=== PATIENT | female | born 1980 | race Caucasian/White ===

== ENCOUNTER 2017-10-24 16:59 | Inpatient (IN) | payer OTHER ==
[2017-10-24] VITALS (11 sets, daily range): BP systolic 93–107; BP diastolic 53–66
[~2017-10-24] VITALS: Ht 162.6 cm; Wt 52.2 kg
[~2017-10-24 16:59] MED LIST: HYDR-3812 PO; SERT25TA PO
[2017-10-24 17:35] LABS: BASOPHILS % (AUTO) 1 % (0-10); EOSINOPHILS % (AUTO) 0 % (0-10); LYMPHOCYTES # (AUTO) 1.2 X 10^3 (1.0-4.0); LYMPHOCYTES % (AUTO) 29 % (12-44); MEAN CORPUSCULAR HGB CONC 34 G/DL (32-36); MEAN CORPUSCULAR VOLUME 102 FL (80-99); MONOCYTES # (AUTO) 0.2 X 10^3 (0.0-1.0); MONOCYTES % (AUTO) 4 % (0-12); NEUTROPHILS # (AUTO) 2.8 X 10^3 (1.8-7.8); NEUTROPHILS % (AUTO) 67 % (42-75); RED CELL DISTRIBUTION WIDTH 18.6 % (10.0-14.5); WHITE BLOOD COUNT 4.3 10^3/uL (4.3-11.0)
[2017-10-24 17:40] LABS: MEAN CORPUSCULAR HEMOGLOBIN 35 PG (25-34); PLATELET COUNT 3 10^3/uL (130-400); RED BLOOD COUNT 2.14 10^6/uL (4.35-5.85)
[2017-10-24 17:52] LABS: INR 1.3 (0.8-1.4); PROTHROMBIN TIME PATIENT 16.2 SEC (12.2-14.7)
[2017-10-24 18:00] LABS: ALANINE AMINOTRANSFERASE 233 U/L (0-55); ALBUMIN 2.8 GM/DL (3.2-4.5); ANION GAP 20 MMOL/L (5-14); ASPARTATE AMINO TRANSFERASE 527 U/L (5-34); BILIRUBIN,TOTAL 1.9 MG/DL (0.1-1.0); BLOOD UREA NITROGEN 11 MG/DL (7-18); BUN/CREATININE RATIO 18; CARBON DIOXIDE 22 MMOL/L (21-32); CHLORIDE 87 MMOL/L (98-107); CREATININE SERUM 0.62 MG/DL (0.60-1.30); GFR ESTIMATED > 60; GLUCOSE 239 MG/DL (70-105); POTASSIUM 2.6 MMOL/L (3.6-5.0); SODIUM 129 MMOL/L (135-145); TOTAL PROTEIN 5.7 GM/DL (6.4-8.2)
[2017-10-24 18:32] LABS: BASOPHILS % (AUTO) 1 % (0-10); EOSINOPHILS % (AUTO) 0 % (0-10); LYMPHOCYTES # (AUTO) 1.1 X 10^3 (1.0-4.0); LYMPHOCYTES % (AUTO) 26 % (12-44); MEAN CORPUSCULAR HEMOGLOBIN 34 PG (25-34); MEAN CORPUSCULAR HGB CONC 34 G/DL (32-36); MEAN CORPUSCULAR VOLUME 102 FL (80-99); MONOCYTES # (AUTO) 0.4 X 10^3 (0.0-1.0); MONOCYTES % (AUTO) 9 % (0-12); NEUTROPHILS # (AUTO) 2.8 X 10^3 (1.8-7.8); NEUTROPHILS % (AUTO) 65 % (42-75); RED BLOOD COUNT 2.15 10^6/uL (4.35-5.85); RED CELL DISTRIBUTION WIDTH 18.7 % (10.0-14.5); WHITE BLOOD COUNT 4.2 10^3/uL (4.3-11.0)
[2017-10-24 18:33] LABS: PATH WILL NEED TO REVIEW SMEAR PATH TO REVIEW; PLATELET COUNT 5 10^3/uL (130-400)
--- NOTE | 2017-10-24 18:42 | ED General ---
General Chief Complaint: General Problems/Pain Stated Complaint: LOW PLATELET COUNT Nursing Triage Note: PT WAS SENT TO ED BY [facility] WITH IRREGULAR LABS. SHE HAD LABS DRAWN BY [facility] EARLIER TODAY AND WAS SENT TO ED FOR POSSIBLE TRANSFUSION. Nursing Sepsis Screen: No Definite Risk Source of Information: Patient Exam Limitations: No Limitations History of Present Illness Time Seen by Provider: 17:01 Initial Comments This 37-year-old young lady presents to the emergency room with anemia and thrombocytopenia related to treatment for metastatic breast cancer. She has been having some oozing epistaxis for the past 2 days. She had labs performed at [facility] earlier today and was found to have significant thrombocytopenia. Her oncology team at [facility] directed her to the emergency room. She is feeling a little lightheaded and shaky but is otherwise stable. She is currently undergoing chemotherapy with gemcitabine and vinorelbine. Patient has known liver metastases with abnormal transaminases. Contact numbers for [facility] (Dr. Rogelio Cintron emergency medicine nurse practitioner are: Allergies and Home Medications Allergies Coded Allergies: No Known Drug Allergies (Verified , 03/24/08) Home Medications Hydrocodone/Acetaminophen 1 Each Tablet, 1-2 TAB PO 4-6HR PRN for PAIN, #30 MAY TAKE ONE OR TWO TABLETS BY MOUTH EVERY 4 TO 6 HOURS NEEDED FOR PAIN. LAST PAIN MEDICATION, ONE TABLET, GIVEN AT 4:44 PM 07/30/16. Prescribed by: JAMAL CEE on 07/30/16 [id number] Constitutional: no symptoms reported EENTM: see HPI Respiratory: no symptoms reported Cardiovascular: see HPI Gastrointestinal: see HPI Genitourinary: no symptoms reported : No Musculoskeletal: no symptoms reported Skin: no symptoms reported Psychiatric/Neurological: No Symptoms Reported Hematologic/Lymphatic: See HPI Immunological/Allergic: see HPI Past Jhoxoac-Aqisuc-Otmbjp Hx Patient Social History Alcohol Use: Denies Use Recreational Drug Use: No Smoking Status: Never a Smoker 2nd Hand Smoke Exposure: No Recent Foreign Travel: No Contact w/Someone Who Travel: No Recent Infectious Disease Expo: No Recent Hopitalizations: Yes Physical Abuse: No Sexual Abuse: No Immunizations Up To Date Date of Influenza Vaccine: Aug 11, 2012 Surgeries History of Surgeries: Yes (D&C, PORT) Surgeries: Lumpectomy Respiratory History of Respiratory Disorde: No Cardiovascular History of Cardiac Disorders: No Neurological History of Neurological Disord: No Reproductive System : No Hx Reproductive Disorders: No Sexually Transmitted Disease: No HIV/AIDS: No Genitourinary History of Genitourinary Disor: No Gastrointestinal History of Gastrointestinal Di: No Musculoskeletal History of Musculoskeletal Dis: No Endocrine History of Endocrine Disorders: No HEENT History of HEENT Disorders: No Loss of Vision: Bilateral Hearing Impairment: Denies Cancer History of Cancer: Yes (METS TO LIVER) Cancer: Breast Did You Recieve Any Treatments: Yes Type of Tx Receive: Chemotherapy Psychosocial History of Psychiatric Problem: No Suicide Risk Score: 0 Integumentary History of Skin or Integumenta: No Blood Transfusions History of Blood Disorders: No Physical Exam Vital Signs Vital Sign - Last 12Hours 10/24/17 17:15 Temp 98.4 Pulse 126 Resp 20 B/P (MAP) 94/73 (80) Pulse Ox 97 O2 Delivery Room Air Capillary Refill : Less Than 3 Seconds General Appearance: No Apparent Distress, Thin HEENT: PERRL/EOMI, Normal ENT Inspection, Pharynx Normal Neck: Normal Inspection Respiratory: Lungs Clear, Normal Breath Sounds, No Accessory Muscle Use, No Respiratory Distress Cardiovascular: No Edema, Systolic Murmur, Other (abdominal bruit) Gastrointestinal: Normal Bowel Sounds, Non Tender, Soft Extremity: Normal Inspection, No Pedal Edema Neurologic/Psychiatric: Alert, Oriented x3, No Motor/Sensory Deficits, Normal Mood/Affect, registered nurse supervisor II-XII Norm as Tested Skin: Normal Color, Warm/Dry Progress/Results/Core Measures Suspected Sepsis Recent Fever Within 48 Hours: No Infection Criteria Present: None New/Unexplained Altered Menta: No Sepsis Screen: No Definite Risk Sepsis Diagnosis: SIRS Temperature:98.4 Pulse: 126 Respiratory Rate: 20 Laboratory Tests 10/24/17 17:27: White Blood Count 4.2L Blood Pressure 94 /73 Mean: 80 Laboratory Tests 10/24/17 17:27: Creatinine 0.62, INR Comment 1.3, Platelet Count 5*L, Total Bilirubin 1.9H Results/Orders Lab Results Laboratory Tests Test 10/24/17 17:27 10/24/17 18:24 10/24/17 19:08 Range/Units White Blood Count 4.2 L 4.3-11.0 10^3/uL Red Blood Count 2.15 L 4.35-5.85 10^6/uL Hemoglobin 7.4 L 11.5-16.0 G/DL Hematocrit 22 L 35-52 % Mean Corpuscular Volume 102 H 80-99 FL Mean Corpuscular Hemoglobin 34 25-34 PG Mean Corpuscular Hemoglobin Concent 34 32-36 G/DL Red Cell Distribution Width 18.7 H 10.0-14.5 % Platelet Count 5 *L 130-400 10^3/uL Mean Platelet Volume 7.4-10.4 FL Neutrophils (%) (Auto) 65 42-75 % Lymphocytes (%) (Auto) 26 12-44 % Monocytes (%) (Auto) 9 0-12 % Eosinophils (%) (Auto) 0 0-10 % Basophils (%) (Auto) 1 0-10 % Neutrophils # (Auto) 2.8 1.8-7.8 X 10^3 Lymphocytes # (Auto) 1.1 1.0-4.0 X 10^3 Monocytes # (Auto) 0.4 0.0-1.0 X 10^3 Eosinophils # (Auto) 0.0 0.0-0.3 10^3/uL Basophils # (Auto) 0.0 0.0-0.1 10^3/uL Absolute Reticulocyte Count 4 L 24-90 10e9/L Percent Reticulocyte Count 0.20 L 0.50-2.40 % Prothrombin Time 16.2 H 12.2-14.7 SEC INR Comment 1.3 0.8-1.4 Activated Partial Thromboplast Time 43 H 24-35 SEC D-Dimer 2.45 H 0.00-0.49 UG/ML Sodium Level 129 L 135-145 MMOL/L Potassium Level 2.6 L 3.6-5.0 MMOL/L Chloride Level 87 L 98-107 MMOL/L Carbon Dioxide Level 22 21-32 MMOL/L Anion Gap 20 H 5-14 MMOL/L Blood Urea Nitrogen 11 7-18 MG/DL Creatinine 0.62 0.60-1.30 MG/DL Estimat Glomerular Filtration Rate > 60 BUN/Creatinine Ratio 18 Glucose Level 239 H 70-105 MG/DL Calcium Level 8.0 L 8.5-10.1 MG/DL Magnesium Level 1.7 L 1.8-2.4 MG/DL Total Bilirubin 1.9 H 0.1-1.0 MG/DL Aspartate Amino Transf (AST/SGOT) 527 H 5-34 U/L Alanine Aminotransferase (ALT/SGPT) 233 H 0-55 U/L Alkaline Phosphatase 295 H 40-136 U/L Lactate Dehydrogenase 732 H 125-220 U/L Total Protein 5.7 L 6.4-8.2 GM/DL Albumin 2.8 L 3.2-4.5 GM/DL Fibrinogen 740 H 221-496 MG/DL Urine Color YELLOW Urine Clarity CLEAR Urine pH 6 5-9 Urine Specific [place] 1.010 L 1.016-1.022 Urine Protein NEGATIVE NEGATIVE Urine Glucose (UA) NEGATIVE NEGATIVE Urine Ketones NEGATIVE NEGATIVE Urine Nitrite NEGATIVE NEGATIVE Urine Bilirubin NEGATIVE NEGATIVE Urine Urobilinogen NORMAL NORMAL MG/DL Urine Leukocyte Esterase 1+ H NEGATIVE Urine RBC (Auto) 1+ H NEGATIVE Urine RBC NONE /HPF Urine WBC 0-2 /HPF Urine Squamous Epithelial Cells 0-2 /HPF Urine Crystals NONE /LPF Urine Bacteria NONE /HPF Urine Casts NONE /LPF Urine Mucus NEGATIVE /LPF Urine Culture Indicated NO My Orders Orders - KALANI RO MD Protime With Inr (10/24/17 17:19) Partial Thromboplastin Time (10/24/17 17:19) Implanted Port: Access (10/24/17 17:32) Platelet Pheresis Lr (10/24/17 18:07) Red Cells Leukocytes Reduced (10/24/17 18:08) Type And Screen (10/24/17 17:56) LDH (10/24/17 18:23) Fibrin Degradation Products (10/24/17 18:23) Smear For Path Review (10/24/17 18:23) Haptoglobin Screen (10/24/17 18:23) Fibrinogen (10/24/17 18:31) Ns Iv 500 Ml (Sodium Chloride 0.9%) (10/24/17 18:45) Potassium Chloride (Tablet) (Klor Con Ta (10/24/17 19:00) Magnesium (10/24/17 19:08) Ua Culture If Indicated (10/24/17 19:08) Chest 1 View, Ap/Pa Only (10/24/17 19:08) Medications Given in ED Current Medications Medications Dose Ordered Sig/Angus Route Start Time Stop Time Status Last Admin Dose Admin Potassium Chloride 20 meq ONCE ONCE PO 10/24/17 19:00 10/24/17 19:01 DC 10/24/17 19:05 20 MEQ Sodium Chloride 500 ml @ 100 mls/hr Q5H ONCE IV 10/24/17 18:45 10/24/17 23:44 10/24/17 18:55 100 MLS/HR Vital Signs/I&O Vital Sign - Last 12Hours 10/24/17 17:15 Temp 98.4 Pulse 126 Resp 20 B/P (MAP) 94/73 (80) Pulse Ox 97 O2 Delivery Room Air Capillary Refill : Less Than 3 Seconds Blood Pressure Mean: 80 Progress Note #1: Time: 18:20 Progress Note Platelet count was 30,000. Call was placed to Dr. Rogelio Cintron at the [facility], oncologist emergency medicine nurse practitioner. He recommended screening for DIC by adding a peripheral smear, LDH, haptoglobin, fibrinogen, and d-dimer. He recommends transfusion of one unit packed red blood cells and one platelet pack. He suggested admitting to observe overnight and repeating labs. Because patient is tachycardic, he also suggested some IV fluids. Labs will be ordered as above. 500 mL normal saline will be ordered for hydration. Progress Note #2: Time: 19:09 Progress Note Chemistry labs have returned. Patient is notably hyponatremic and hypokalemic. She presently has normal saline running. This will be switched over to normal saline with 40 mEq of potassium upon admission. She will be given potassium 20 mEq by mouth now. Dr. El was updated and also recommended checking magnesium and also screening for infection with chest x-ray and UA. Progress Note #3: Time: 19:48 Progress Note Chest x-ray was viewed by me. No acute abnormalities were appreciated. UA was negative for infection. Platelets are now infusing. Dr. Williamson is in the room to assess patient. Diagnostic Imaging Diagonstic Imaging: Xray Plain Films/CT/US/NM/MRI: chest Comments Chest x-ray viewed by me and report reviewed. See report below: NAME: RANDI GASTON MED REC#: [id number] PT STATUS: ADM IN : 1980 PHYSICIAN: KALANI RO MD ADMIT DATE: 10/24/17 Signed Date of Exam: 10/24/17 CHEST 1 VIEW, AP/PA ONLY PATIENT HISTORY: Stage IV breast cancer, low platelet count. TECHNIQUE: Single frontal view of the chest. COMPARISON: CT of the chest from 07/26/2016. FINDINGS: The lung volumes are normal. No focal consolidation is seen. No large pleural effusion or pneumothorax is seen. The cardiomediastinal silhouette is normal in size and contour. No acute osseous abnormality is seen. The tip of the right Port-A-Cath projects over the low SVC. IMPRESSION: No acute pulmonary abnormality seen. Dictated by: Dictated on workstation # [id number] Dict: 10/24/171927 Trans: 10/24/171931 Interpreted by: CLEMENTE SMITH MD Electronically signed by: CLEMENTE SMITH MD 10/24/171931 Departure Communication (Admissions) Time/Spoke to Admitting Phy: 18:[address] Williamson Time/Spoke to Consulting Phy: 18:30 Communication/Consulting Dr. El was consulted and will see the patient in the morning. He recommended repeating the DIC panel in the morning along with the other labs. Impression Impression: Primary Impression: Thrombocytopenia Additional Impressions: Anemia Qualified Codes: D64.9 - Anemia, unspecified Epistaxis Metastatic breast cancer Hypokalemia Hyponatremia Elevated transaminase level Hyperglycemia Disposition: 09 ADMITTED INPATIENT Condition: Improved Admissions Decision to Admit Reason: Admit from ER (General) Decision to Admit/Date: Oct 24, 2017 Time/Decision to Admit Time: 18:15 Departure-Patient Inst. Referrals: ANNETTE WILLIAMSON MD (PCP/Family) Primary Care Physician KALANI RO MD Oct 24, 2017 18:41
[2017-10-24] MEDS ORDERED: NS IV 500 ML 500 ML IV ONE (18:45)
[2017-10-24] MEDS ORDERED: KCL 10 MEQ TAB (MICRO K) PO ONE (19:00)
--- NOTE | 2017-10-24 19:31 | Diagnostic Imaging Report ---
PATIENT HISTORY: Stage IV breast cancer, low platelet count. TECHNIQUE: Single frontal view of the chest. COMPARISON: CT of the chest from 07/26/2016. FINDINGS: The lung volumes are normal. No focal consolidation is seen. No large pleural effusion or pneumothorax is seen. The cardiomediastinal silhouette is normal in size and contour. No acute osseous abnormality is seen. The tip of the right Port-A-Cath projects over the low SVC. IMPRESSION: No acute pulmonary abnormality seen. Dictated by: Dictated on workstation # [id number]
--- OUTSIDE RECORDS SUMMARY | 2017-10-24 19:33 | XMS REPORT | Clinical Summary ---
Author Author [facility] Organization [facility] Address Unknown Phone Unavailable Care Team Providers Care Barometers Calibrator Name Role Phone PCP Unavailable Source Comments Some departments are not documenting in the electronic medical record. If you do not see the information that you expected, contact Release of Information in the Health Information Management department at [phone] for further assistance in locating additional records.[facility] Allergies Active Allergy Reactions Severity Noted Date Comments Progesterone ITCHING Low 07/31/2016 Current Medications Prescription Sig. Disp. 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 Left infiltrating mammary carcinoma, ductal type (ER/MS 0%, HER2 0+, Ki-67 70%) at 10:00, dx 07/2016 2. [place] negative HISTORY: Ms. Mckeon is a female who presented to [facility] on 07/31/2016 at age 36 for evaluation of newly diagnosed breast cancer. She reports finding left breast lump on 07/13/2016. Ms. Mckeon denies breast pain, skin changes, or nipple discharge. She has no history of breast issues, biopsies, or surgeries, and had never had breast imaging prior to 07/20/2016. Ultrasound guided left breast biopsy on 07/20/2016 ( in [place]) revealed infiltrating mammary carcinoma, ductal type. Left axillary lymph node biopsy revealed fragments of benign lymphoid tissue; no malignancy identified. She completed jed-adjuvant clinical trial with Taxotere/Carbo every 3 weeks x6 cycles on 11/23/16. She underwent left RSL lumpectomy/SLNB on 12/13/16. Final pathology revealed 1.8 cm residual grade 3 IDC (60% cellularity); margins clear; 0/5 nodes. Ms. Mckeon completed adjuvant ddAC on 03/29/17. She completed radiation therapy with Dr. Rain on 06/05/17. BREAST IMAGING: Mammogram: -- Bilateral diagnostic mammogram 07/20/16 ( in [place]) revealed heterogeneously dense breast tissue and a lobulated mass measuring 2 cm in its visualized portion along the far posterior aspect of the superior slightly medial left breast. Ultrasound: -- Left breast ultrasound 07/20/16 ( in [place]) revealed at 10:00, 6 cm FTN, there was a lobulated suspicious hypoechoic mass with no longer than side dimensions and minimal shadowing seen measuring 2.3 x 2 x 2 cm with increased internal vascularity suspicious for breast cancer. It extended to the posterior aspect of the breast. No definitive invasions to thepectoralis muscled. There was an indeterminate 2.4 cm lymph node in the axilla with increased vascularity and mild thickening of the cortex. MRI: -- Bilateral breast MRI 08/09/16 ([facility]) revealed in the right breast, there was no evidence of abnormal enhancement, mass, or axillary/internal mammary adenopathy. There was a lobulated enhancing mass at 10:00 in the left breast which measured 2.5 x 2.1 x 2.3 cm and demonstrated suspicious washout kinetics and was consistent with the known invasive ductal carcinoma. This mass extended to within a few millimeters of the chest wall, though, there was a preserved fat plane and no evidence of chest wall invasion. No other suspicious abnormal enhancement was seen in the left breast. No abnormal left axillary or internal mammary lymph nodes were identified. Ancillary findings: Right IJ chest port catheter in place. -- Bilateral breast MRI 10/31/16 ([facility]) revealed in the right breast, there was no suspicious mass or nonmass enhancement. There was no axillary or internal mammary lymphadenopathy. There was decreased size of the known malignancy at 10:00 posterior depth measuring 1.3 cm transverse x 0.9 cm AP x 1.3 cm CC (previously measured 2.5 x 2.1 x 2.3 cm) which exhibited predominantly washout kinetics. The mass was located far posterior, but there was preserved fat plane with the pectoralis muscle. A marking clip was not visualized. There was no axillary or internal mammary lymphadenopathy. Ancillary findings: Right Port-A-Cath was noted. Other Imaging: CT chest 07/26/16 ([facility]) revealed biopsy proven 2.2 cm cancer mass in the upper medial aspect of the left breast, nonspecific minimally enlarged lymph node in the left axilla with features favoring benign reactive lymph node, tiny pulmonary nodules in the right lung base and left upper lobe were favored to be benign, isolated sclerotic lesion measuring 0.7 cm in the head of the left humerus, probably a bony island rather than early sclerotic metastasis. Bone scan and follow up studies were recommended. 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 No palpable right breast masses. No skin, nipple, or areolar change. No supraclavicular or axillary adenopathy. MEDICAL ONCOLOGY: Dr. Park PRESENT THERAPY: Jed-adjuvant clinical trial with Taxotere/Carbo every 3 weeks x 6, 08/09/16 - 11/23/16. Adjuvant ddAC x 4, 01/25/17 - 03/29/17 REFERRED BY: Nichole El MD Encounters Date Type Specialty Care Team Description 09/02/2017 Telephone Oncology Andrade Park MD Research 08/23/2017 Telephone Oncology Andrade Park MD Research 08/15/2017 Pre/Post Radiology Tono Snow RN Procedure 08/15/2017 Orders Only Oncology Andrade Park MD Malignant neoplasm of left breast in female, estrogen receptor negative, unspecified site of breast (HCC) (Primary Dx);Malignant neoplasm of breast in female, estrogen receptor negative, unspecified laterality, unspecified site of breast (HCC) 08/14/2017 Telephone Andrade Chung MD Research 08/13/2017 Clinical Otolaryngology Lad, GELY oJ Malignant neoplasm of Support upper-outer quadrant of left female breast, unspecified estrogen receptor status (HCC) 08/13/2017 Office Visit Andrade Chung MD Malignant neoplasm of breast in female, estrogen receptor negative, unspecified laterality, unspecified site of breast (HCC) (Primary Dx);Clinical trial participant 08/13/2017 Documentation Andrade Chung MD 08/13/2017 Documentation Andrade Chung MD 08/09/2017 [facility] Radiology Andrade Park MD Encounter 08/09/2017 [facility] Radiology Andrade Park MD Encounter 08/09/2017 [facility] Radiology Andrade Park MD Encounter 08/09/2017 [facility] Radiology Andrade Park MD Encounter 08/08/2017 Telephone Andrade Chung MD Appointment (Called Pt. to advise she can do her Labs at 10:00am in Imaging at since her CT is here at 10:15am. Advised to arrive by 9:30am at ...08/07/17-[facility]) 08/08/2017 Orders Only Oncology Andrade Park MD Malignant neoplasm of left breast in female, estrogen receptor negative, unspecified site of breast (Primary Dx) 08/08/2017 Orders Only Oncology Tanya Stanton APRN Malignant neoplasm of female breast, unspecified estrogen receptor status, unspecified laterality, unspecified site of breast (Primary Dx) 08/08/2017 Telephone Ron Emerson MD Appointment 08/08/2017 Telephone Oncology Ron Padilla MD Appointment 08/07/2017 Procedure Pass Radiology 08/07/2017 Procedure Pass Radiology 08/07/2017 Procedure Pass Radiology 08/07/2017 Orders Only Oncology Andrade Park MD Malignant neoplasm of left breast in female, estrogen receptor negative, unspecified site of breast (Primary Dx) 08/05/2017 Nurse Only Andrade Chung MD Malignant neoplasm of left breast in female, estrogen receptor negative, unspecified site of breast;Clinical trial participant;Malignant neoplasm of female breast, unspecified estrogen receptor status, unspecified laterality, unspecified site of breast 07/31/2017 Telephone Oncology Andrade Park MD Appointment Request 07/31/2017 Orders Only Oncology Andrade aPrk MD Malignant neoplasm of female breast, unspecified estrogen receptor status, unspecified laterality, unspecified site of breast (Primary Dx) 07/31/2017 Orders Only Oncology Andrade Park MD Malignant neoplasm of left breast in female, estrogen receptor negative, unspecified site of breast (Primary Dx);Clinical trial participant from Last 3 Months Family History Medical History Relation Name Comments Hypertension Father Depression Maternal Grandfather Heart Disease Maternal Grandfather Diabetes Maternal Grandmother Arthritis-osteo Mother High Cholesterol Mother Rectal Cancer Mother Stroke Mother Cancer-Prostate Paternal Grandfather Stroke Paternal Grandfather Heart Disease Paternal Grandmother Hypertension Paternal Grandmother Thyroid Disease Paternal Grandmother Cancer-Prostate Paternal Uncle Depression Sister Rashes/Skin Problems Sister Relation Name Status Comments Father Alive Maternal Grandfather Alive Maternal Grandmother Mother Alive Paternal Grandfather Paternal Grandmother Paternal Uncle Sister Alive Social History Tobacco Use Types Packs/Day Years Used Date Never Smoker Alcohol Use Drinks/Week oz/Week Comments No Sex Assigned at Date Recorded Not on file Last Filed Vital Signs Vital Sign Reading Time Taken Blood Pressure 140/79 08/13/2017 9:31 AM CDT Pulse 96 08/13/2017 9:31 AM CDT Temperature 36.7 C (98.1 F) 08/13/2017 9:31 AM CDT Respiratory Rate 16 08/13/2017 9:31 AM CDT Oxygen Saturation 100% 08/13/2017 9:31 AM CDT Inhaled Oxygen - - Concentration Weight 61.3 kg (135 lb 3.2 oz) 08/13/2017 9:31 AM CDT Height 159.4 cm (5' 2.76") 08/13/2017 9:31 AM CDT Body Mass Index 24.14 08/13/2017 9:31 AM CDT Plan of Treatment Health Maintenance Due Date Last Done Comments PHYSICAL (COMPREHENSIVE) 02/01/1987 EXAM PERTUSSIS VACCINE 02/01/1991 TETANUS VACCINE 02/01/1997 CERVICAL CANCER SCREENING 02/01/2010 INFLUENZA VACCINE 06/11/2017 Implants Implanted Type Area Beamster Device Expiration Model / Identifier Date Serial / Lot Venous Access Port Procedures Procedure Name Priority Date/Time Associated Diagnosis Comments ECG-SCAN 09/21/2017 Results for this 10:20 AM PROCUREMENT FORESTER procedure are in the results section. OTOACOUSTIC EMMISSIONS Routine 08/13/2017 12:00 AM CDT AUDIOMETRY WITH Routine 08/13/2017 TYMPANOMETRY 12:00 AM CDT from Last 3 Months Results * PATHOLOGY REPORTS FROM OUTSIDE SCAN (09/30/2017 11:30 AM) Narrative Ordered by an unspecified provider. * ECG-SCAN (09/21/2017 10:20 AM) Narrative Ordered by an unspecified provider. * OTOACOUSTIC EMMISSIONS (08/13/2017) Specimen Performing Laboratory IN CLINIC * AUDIOMETRY WITH TYMPANOMETRY (08/13/2017) Specimen Performing Laboratory IN CLINIC * NM BONE SCAN WHOLEBODY (08/09/2017 3:39 PM) Specimen Performing Laboratory [facility] RAD RESULTS Impressions No scintigraphic evidence of osseous metastatic disease. Approved by Ollie Weathers M.D. on 08/09/2017 3:42 PM By my electronic signature, I attest that I have personally reviewed the images for this examination and formulated the interpretations and opinions expressed in this report Finalized by David Mills M.D. on 08/09/2017 4:45 PM. Dictated by Ollie Weathers M.D. on 08/09/2017 3:41 PM. Narrative BONE SCAN OF THE WHOLE BODY CLINICAL HISTORY: 37-year-old female, staging, history of breast cancer, triple-negative malignant neoplasm of breast, malignant neoplasm of upper outer quadrant of left female breast. RADIOPHARMACEUTICAL: 25.8 mCi IV Technetium-99m methylene diphosphonate (MDP) TECHNIQUE: Three hours following the intravenous injection of Tc-99m MDP, a whole body bone scan was performed. Images were acquired in the anterior and posterior projections. COMPARISON: CT chest abdomen and pelvis from August 09, 2017 FINDINGS: Physiologic activity is present within the kidneys and bladder. Degenerative changes are seen within the major joints including the shoulders, sternoclavicular joints, elbows, wrists, knees, ankles and thoracolumbar spine. No abnormal foci of increased uptake are identified to suggest osseous metastatic disease. Procedure Note Interface, Radiant Results - 08/09/2017 4:48 PM CDT BONE SCAN OF THE WHOLE BODY CLINICAL HISTORY: 37-year-old female, staging, history of breast cancer, triple-negative malignant neoplasm of breast, malignant neoplasm of upper outer quadrant of left female breast. RADIOPHARMACEUTICAL: 25.8 mCi IV Technetium-99m methylene diphosphonate (MDP) TECHNIQUE: Three hours following the intravenous injection of Tc-99m MDP, a whole body bone scan was performed. Images were acquired in the anterior and posterior projections. COMPARISON: CT chest abdomen and pelvis from August 09, 2017 FINDINGS: Physiologic activity is present within the kidneys and bladder. Degenerative changes are seen within the major joints including the shoulders, sternoclavicular joints, elbows, wrists, knees, ankles and thoracolumbar spine. No abnormal foci of increased uptake are identified to suggest osseous metastatic disease. IMPRESSION No scintigraphic evidence of osseous metastatic disease. Approved by Ollie Weathers M.D. on 08/09/2017 3:42 PM By my electronic signature, I attest that I have personally reviewed the images for this examination and formulated the interpretations and opinions expressed in this report Finalized by David Mills M.D. on 08/09/2017 4:45 PM. Dictated by Ollie Weathers M.D. on 08/09/2017 3:41 PM. * CT ABD/PELV W CONTRAST (08/09/2017 10:47 AM) Specimen Performing Laboratory [facility] RAD RESULTS Impressions CHEST: 1. Interval left lumpectomy. There has been development of mild soft tissue thickening within the left axilla which may be postsurgical in nature. Continued attention on follow-up. 2. No definite pulmonary metastases. Several tiny fissural or subpleural nodular densities are similar to 2016. Continued periodic surveillance is suggested. 3. No thoracic lymphadenopathy ABDOMEN AND PELVIS: 1. Interval development of multiple hepatic masses compatible with hepatic metastatic disease. 2. No abdominopelvic lymphadenopathy or ascites. By my electronic signature, I attest that I have personally reviewed the images for this examination and formulated the interpretations and opinions expressed in this report Finalized by Danilo Farrell M.D. on 08/09/2017 12:18 PM. Dictated by Chris Davenport M.D. on 08/09/2017 11:[address] CHEST, ABDOMEN AND PELVIS Clinical Indication:Female, 37 years old. abdominal pain. Breast cancer. Technique: Multiple contiguous axial images were obtained through the chest, abdomen and pelvis following the administration of IV contrast material. Portal venous phase of postcontrast imaging was obtained. Post processing coronal and sagittal reconstruction images were made from the axial images. IV contrast: Omnipaque-350 Bowel contrast:None Comparison: External chest abdomen pelvis July 26, 2016 CHEST FINDINGS: Lower Neck: Unremarkable Axilla, Mediastinum and Jolanta: No thoracic lymphadenopathy. Heart and Great Vessels: The heart is normal in size without pericardial effusion. Thoracic aorta is normal in caliber. Interval placement of a right IJ chest port with distal tip terminating within the SVC. Airway, Lungs and Pleura: The central airways are patent. No focal consolidation , pleural effusion, or pneumothorax. A 3 mm nodule adjacent to the right major fissure (image 47 of series 601) is stable. A subpleural nodular density in the left lower lobe (image 39 of series 2) is stable. There is a tiny nodular density adjacent to the left major fissure on image 36 of series 2. A tiny dependent density adjacent to the pleura on image 36 of series 2 was probably present previously. Chest Wall and Osseous Structures: Surgical clips are noted within the left medial breast. Development of mild soft tissue thickening within the left axilla , which may be postsurgical in nature. Unchanged tiny sclerotic density within the left humeral head, likely a bony enostosis. No destructive osseous lesions. ABDOMEN AND PELVIS FINDINGS: Liver and Biliary system: There has been development of numerous hepatic masses throughout the liver compatible with metastases. There is a dominant large confluent mass involving portions of segment 4, 5, and 8. This measures 9.6 x 6.4 x 12.8 cm (image 96 of series 2 and image 45 of series 604. For reference and follow-up, a separate round lesion within segment 8 measures 3.1 cm transverse (image 78 of series 2). The hepatic and portal veins are patent. The gallbladder is unremarkable. No bile duct dilatation. Spleen: Unremarkable. Adrenal Glands and Kidneys: Unremarkable. Pancreas and Retroperitoneum: The pancreas is unremarkable. No retroperitoneal lymphadenopathy. Aorta and Major Vessels: The abdominal aorta is normal in caliber without significant atherosclerosis. Bowel, Mesentery and Peritoneal space: The large and small bowel are normal in caliber without evidence of obstruction. The appendix is normal. No mesenteric lymphadenopathy or abdominal ascites. Pelvis: The urinary bladder is mildly distended and grossly unremarkable. The uterus and adnexa are normal. No pelvic ascites or lymphadenopathy. Abdominal wall and Osseous Structures: There is unchanged sclerosis about the bilateral iliac bones, adjacent to the SI joints (for example coronal image 78) . No new aggressive or destructive osseous lesions are identified. Procedure Note Interface, Radiant Results - 08/09/2017 12:[address] CHEST, ABDOMEN AND PELVIS Clinical Indication: Female, 37 years old. abdominal pain. Breast cancer. Technique: Multiple contiguous axial images were obtained through the chest, abdomen and pelvis following the administration of IV contrast material. Portal venous phase of postcontrast imaging was obtained. Post processing coronal and sagittal reconstruction images were made from the axial images. IV contrast: Omnipaque-350 Bowel contrast: None Comparison: External chest abdomen pelvis July 26, 2016 CHEST FINDINGS: Lower Neck: Unremarkable Axilla, Mediastinum and Jol[place]: No thoracic lymphadenopathy. Heart and Great Vessels: The heart is normal in size without pericardial effusion. Thoracic aorta is normal in caliber. Interval placement of a right IJ chest port with distal tip terminating within the SVC. Airway, Lungs and Pleura: The central airways are patent. No focal consolidation , pleural effusion, or pneumothorax. A 3 mm nodule adjacent to the right major fissure (image 47 of series 601) is stable. A subpleural nodular density in the left lower lobe (image 39 of series 2) is stable. There is a tiny nodular density adjacent to the left major fissure on image 36 of series 2. A tiny dependent density adjacent to the pleura on image 36 of series 2 was probably present previously. Chest Wall and Osseous Structures: Surgical clips are noted within the left medial breast. Development of mild soft tissue thickening within the left axilla , which may be postsurgical in nature. Unchanged tiny sclerotic density within the left humeral head, likely a bony enostosis. No destructive osseous lesions. ABDOMEN AND PELVIS FINDINGS: Liver and Biliary system: There has been development of numerous hepatic masses throughout the liver compatible with metastases. There is a dominant large confluent mass involving portions of segment 4, 5, and 8. This measures 9.6 x 6.4 x 12.8 cm (image 96 of series 2 and image 45 of series 604. For reference and follow-up, a separate round lesion within segment 8 measures 3.1 cm transverse (image 78 of series 2). The hepatic and portal veins are patent. The gallbladder is unremarkable. No bile duct dilatation. Spleen: Unremarkable. Adrenal Glands and Kidneys: Unremarkable. Pancreas and Retroperitoneum: The pancreas is unremarkable. No retroperitoneal lymphadenopathy. Aorta and Major Vessels: The abdominal aorta is normal in caliber without significant atherosclerosis. Bowel, Mesentery and Peritoneal space: The large and small bowel are normal in caliber without evidence of obstruction. The appendix is normal. No mesenteric lymphadenopathy or abdominal ascites. Pelvis: The urinary bladder is mildly distended and grossly unremarkable. The uterus and adnexa are normal. No pelvic ascites or lymphadenopathy. Abdominal wall and Osseous Structures: There is unchanged sclerosis about the bilateral iliac bones, adjacent to the SI joints (for example coronal image 78) . No new aggressive or destructive osseous lesions are identified. IMPRESSION CHEST: 1. Interval left lumpectomy. There has been development of mild soft tissue thickening within the left axilla which may be postsurgical in nature. Continued attention on follow-up. 2. No definite pulmonary metastases. Several tiny fissural or subpleural nodular densities are similar to 2016. Continued periodic surveillance is suggested. 3. No thoracic lymphadenopathy ABDOMEN AND PELVIS: 1. Interval development of multiple hepatic masses compatible with hepatic metastatic disease. 2. No abdominopelvic lymphadenopathy or ascites. By my electronic signature, I attest that I have personally reviewed the images for this examination and formulated the interpretations and opinions expressed in this report Finalized by Danilo Farrell M.D. on 08/09/2017 12:18 PM. Dictated by Chris Davenport M.D. on 08/09/2017 11:24 AM. * CT CHEST W CONTRAST (08/09/2017 10:47 AM) Specimen Performing Laboratory [facility] RAD RESULTS Impressions CHEST: 1. Interval left lumpectomy. There has been development of mild soft tissue thickening within the left axilla which may be postsurgical in nature. Continued attention on follow-up. 2. No definite pulmonary metastases. Several tiny fissural or subpleural nodular densities are similar to 2016. Continued periodic surveillance is suggested. 3. No thoracic lymphadenopathy ABDOMEN AND PELVIS: 1. Interval development of multiple hepatic masses compatible with hepatic metastatic disease. 2. No abdominopelvic lymphadenopathy or ascites. By my electronic signature, I attest that I have personally reviewed the images for this examination and formulated the interpretations and opinions expressed in this report Finalized by Danilo Farrell M.D. on 08/09/2017 12:18 PM. Dictated by Chris Davenport M.D. on 08/09/2017 11:[address] CHEST, ABDOMEN AND PELVIS Clinical Indication:Female, 37 years old. abdominal pain. Breast cancer. Technique: Multiple contiguous axial images were obtained through the chest, abdomen and pelvis following the administration of IV contrast material. Portal venous phase of postcontrast imaging was obtained. Post processing coronal and sagittal reconstruction images were made from the axial images. IV contrast: Omnipaque-350 Bowel contrast:None Comparison: External chest abdomen pelvis July 26, 2016 CHEST FINDINGS: Lower Neck: Unremarkable Axilla, Mediastinum and Jolanta: No thoracic lymphadenopathy. Heart and Great Vessels: The heart is normal in size without pericardial effusion. Thoracic aorta is normal in caliber. Interval placement of a right IJ chest port with distal tip terminating within the SVC. Airway, Lungs and Pleura: The central airways are patent. No focal consolidation , pleural effusion, or pneumothorax. A 3 mm nodule adjacent to the right major fissure (image 47 of series 601) is stable. A subpleural nodular density in the left lower lobe (image 39 of series 2) is stable. There is a tiny nodular density adjacent to the left major fissure on image 36 of series 2. A tiny dependent density adjacent to the pleura on image 36 of series 2 was probably present previously. Chest Wall and Osseous Structures: Surgical clips are noted within the left medial breast. Development of mild soft tissue thickening within the left axilla , which may be postsurgical in nature. Unchanged tiny sclerotic density within the left humeral head, likely a bony enostosis. No destructive osseous lesions. ABDOMEN AND PELVIS FINDINGS: Liver and Biliary system: There has been development of numerous hepatic masses throughout the liver compatible with metastases. There is a dominant large confluent mass involving portions of segment 4, 5, and 8. This measures 9.6 x 6.4 x 12.8 cm (image 96 of series 2 and image 45 of series 604. For reference and follow-up, a separate round lesion within segment 8 measures 3.1 cm transverse (image 78 of series 2). The hepatic and portal veins are patent. The gallbladder is unremarkable. No bile duct dilatation. Spleen: Unremarkable. Adrenal Glands and Kidneys: Unremarkable. Pancreas and Retroperitoneum: The pancreas is unremarkable. No retroperitoneal lymphadenopathy. Aorta and Major Vessels: The abdominal aorta is normal in caliber without significant atherosclerosis. Bowel, Mesentery and Peritoneal space: The large and small bowel are normal in caliber without evidence of obstruction. The appendix is normal. No mesenteric lymphadenopathy or abdominal ascites. Pelvis: The urinary bladder is mildly distended and grossly unremarkable. The uterus and adnexa are normal. No pelvic ascites or lymphadenopathy. Abdominal wall and Osseous Structures: There is unchanged sclerosis about the bilateral iliac bones, adjacent to the SI joints (for example coronal image 78) . No new aggressive or destructive osseous lesions are identified. Procedure Note Interface, Radiant Results - 08/09/2017 12:[address] CHEST, ABDOMEN AND PELVIS Clinical Indication: Female, 37 years old. abdominal pain. Breast cancer. Technique: Multiple contiguous axial images were obtained through the chest, abdomen and pelvis following the administration of IV contrast material. Portal venous phase of postcontrast imaging was obtained. Post processing coronal and sagittal reconstruction images were made from the axial images. IV contrast: Omnipaque-350 Bowel contrast: None Comparison: External chest abdomen pelvis July 26, 2016 CHEST FINDINGS: Lower Neck: Unremarkable Axilla, Mediastinum and Jolanta: No thoracic lymphadenopathy. Heart and Great Vessels: The heart is normal in size without pericardial effusion. Thoracic aorta is normal in caliber. Interval placement of a right IJ chest port with distal tip terminating within the SVC. Airway, Lungs and Pleura: The central airways are patent. No focal consolidation , pleural effusion, or pneumothorax. A 3 mm nodule adjacent to the right major fissure (image 47 of series 601) is stable. A subpleural nodular density in the left lower lobe (image 39 of series 2) is stable. There is a tiny nodular density adjacent to the left major fissure on image 36 of series 2. A tiny dependent density adjacent to the pleura on image 36 of series 2 was probably present previously. Chest Wall and Osseous Structures: Surgical clips are noted within the left medial breast. Development of mild soft tissue thickening within the left axilla , which may be postsurgical in nature. Unchanged tiny sclerotic density within the left humeral head, likely a bony enostosis. No destructive osseous lesions. ABDOMEN AND PELVIS FINDINGS: Liver and Biliary system: There has been development of numerous hepatic masses throughout the liver compatible with metastases. There is a dominant large confluent mass involving portions of segment 4, 5, and 8. This measures 9.6 x 6.4 x 12.8 cm (image 96 of series 2 and image 45 of series 604. For reference and follow-up, a separate round lesion within segment 8 measures 3.1 cm transverse (image 78 of series 2). The hepatic and portal veins are patent. The gallbladder is unremarkable. No bile duct dilatation. Spleen: Unremarkable. Adrenal Glands and Kidneys: Unremarkable. Pancreas and Retroperitoneum: The pancreas is unremarkable. No retroperitoneal lymphadenopathy. Aorta and Major Vessels: The abdominal aorta is normal in caliber without significant atherosclerosis. Bowel, Mesentery and Peritoneal space: The large and small bowel are normal in caliber without evidence of obstruction. The appendix is normal. No mesenteric lymphadenopathy or abdominal ascites. Pelvis: The urinary bladder is mildly distended and grossly unremarkable. The uterus and adnexa are normal. No pelvic ascites or lymphadenopathy. Abdominal wall and Osseous Structures: There is unchanged sclerosis about the bilateral iliac bones, adjacent to the SI joints (for example coronal image 78) . No new aggressive or destructive osseous lesions are identified. IMPRESSION CHEST: 1. Interval left lumpectomy. There has been development of mild soft tissue thickening within the left axilla which may be postsurgical in nature. Continued attention on follow-up. 2. No definite pulmonary metastases. Several tiny fissural or subpleural nodular densities are similar to 2016. Continued periodic surveillance is suggested. 3. No thoracic lymphadenopathy ABDOMEN AND PELVIS: 1. Interval development of multiple hepatic masses compatible with hepatic metastatic disease. 2. No abdominopelvic lymphadenopathy or ascites. By my electronic signature, I attest that I have personally reviewed the images for this examination and formulated the interpretations and opinions expressed in this report Finalized by Danilo Farrell M.D. on 08/09/2017 12:18 PM. Dictated by Chris Davenport M.D. on 08/09/2017 11:24 AM. * CBC AND DIFF (08/09/2017 9:51 AM) Component Value Ref Range White Blood Cells 6.8 4.5 - 11.0 K/UL RBC 4.21 4.0 - 5.0 M/UL Hemoglobin 13.3 12.0 - 15.0 GM/DL Hematocrit 39.0 36 - 45 % MCV 92.7 80 - 100 FL MCH 31.6 26 - 34 PG MCHC 34.2 32.0 - 36.0 G/DL RDW 12.9 11 - 15 % Platelet Count 268 150 - 400 K/UL MPV 7.8 7 - 11 FL Neutrophils 62 41 - 77 % Lymphocytes 25 24 - 44 % Monocytes 10 4 - 12 % Eosinophils 2 0 - 5 % Basophils 1 0 - 2 % Absolute Neutrophil Count 4.20 1.8 - 7.0 K/UL Absolute Lymph Count 1.70 1.0 - 4.8 K/UL Absolute Monocyte Count 0.70 0 - 0.80 K/UL Absolute Eosinophil Count 0.10 0 - 0.45 K/UL Absolute Basophil Count 0.10 0 - 0.20 K/UL Specimen Performing Laboratory Blood [facility] [address] [place] [address] * COMPREHENSIVE METABOLIC PANEL (08/09/2017 9:51 AM) Component Value Ref Range Sodium 137 137 - 147 MMOL/L Potassium 3.9 3.5 - 5.1 MMOL/L Chloride 102 98 - 110 MMOL/L Glucose 95 70 - 100 MG/DL Blood Urea Nitrogen 15 7 - 25 MG/DL Creatinine 0.84 0.4 - 1.00 MG/DL Calcium 10.2 8.5 - 10.6 MG/DL Total Protein 7.8 6.0 - 8.0 G/DL Total Bilirubin 0.4 0.3 - 1.2 MG/DL Albumin 4.6 3.5 - 5.0 G/DL Alk Phosphatase 129 (H) 25 - 110 U/L AST (SGOT) 170 (H) 7 - 40 U/L CO2 25 21 - 30 MMOL/L ALT (SGPT) 198 (H) 7 - 56 U/L Anion Gap 10 3 - 12 eGFR Non >60 >60 mL/min Comment: The eGFR is not validated for use in drug dosing adjustments. Continue to use estimated creatinine clearance per dosing reference text. Please contact the Clinical Pharmacist for questions. eGFR >60 >60 mL/min Comment: The eGFR is not validated for use in drug dosing adjustments. Continue to use estimated creatinine clearance per dosing reference text. Please contact the Clinical Pharmacist for questions. Specimen Performing Laboratory Blood [facility] [address] [place] [address] * ANTI-NUCLEAR AB(AYLEEN)-QUANT (08/05/2017 11:06 AM) Component Value Ref Range AYLEEN Titer/Pattern 640 (H)Comment: SPECKLED <80 Specimen Performing Laboratory [facility] [address] [place] [address] * ANTI-NUCLEAR ANTIBODY(AYLEEN) (08/05/2017 11:06 AM) Component Value Ref Range AYLEEN Screen SEE TITER <80 TITER Specimen Performing Laboratory Blood [facility] [address] [place] [address] from Last 3 Months
--- OUTSIDE RECORDS SUMMARY | 2017-10-24 19:33 | XMS REPORT | Continuity of Care Document ---
Author Author [facility] Organization [facility] Address Unknown Phone Unavailable Care Team Providers Care Body Man Name Role Phone [employer] Unavailable Unavailable Problems Medications Allergies, Adverse Reactions, Alerts Immunizations Results Vital Signs Encounters Location Location Details Encounter Type Encounter Number Reason For Visit Attending Provider ADM Date DC Date Status Source [place] SERIES [id number] TU LUNA 07/08/2017 07/08/2017 Active [facility] [place] SERIES [id number] TU LUNA 07/08/2017 07/08/2017 Active The [facility] CA SERIES [id number] REGAN BAM 07/16/20172016 Active The [facility] CA SERIES [id number] 08/05/2017 08/05/2017 Active The [facility] CA SERIES [id number] TU LUNA 08/09/2017 08/09/2017 Active The [facility] OUTPATIENT [id number] TU LUNA 08/09/2017 08/09/2017 Active The [facility] CA SERIES [id number] TU LUNA 08/13/2017 08/13/2017 Active The [facility] OUTPATIENT [id number] 08/20/2017 Active The [facility] O TU LUNA Active [facility] Procedures Plan of Care Social History Assessment and Plan Family History Value Date Source Advance Directives Order Name Results Value Date Source
--- OUTSIDE RECORDS SUMMARY | 2017-10-24 19:33 | XMS REPORT | Encounter Summary ---
Author Author [facility] Organization [facility] Address Unknown Phone Unavailable Care Team Providers Care School Resource Officer Name Role Phone PCP Unavailable Reason for Visit * Reason Comments Research Encounter Details Date Type Department Care Team Description 09/02/2017 Telephone [facility] Andrade Park MD [facility] - CRC [address] [facility] Treatment [place] [address] [place] [address] [place] [address] [phone] Social History Tobacco Use Types Packs/Day Years Used Date Never Smoker Alcohol Use Drinks/Week oz/Week Comments No Sex Assigned at Date Recorded Not on file as of this encounter Functional Status Functional Status Response Date of Assessment Does the patient have a hearing impairment: No 07/08/2017 Does the patient have a visual impairment: Yes 07/08/2017 Does the patient have impaired ambulation: No 07/08/2017 Does the patient have an activity of daily living No 07/08/2017 (ADL) impairment: Does the patient have an instrumental activity of No 07/08/2017 daily living (IADL) impairment: Cognitive Status Response Date of Assessment Does the patient have a cognitive impairment: No 07/08/2017 as of this encounter Miscellaneous Notes * Telephone Encounter - Nakita Rajput - 09/02/2017 2:09 PM CDT Patient called Dr. Park's team letting them know she would like to withdrawal consent for the Romidepsin clinical trial. She will be participating in a clinical trial outside of . Team has been notified and patient has been updated to a screen failure in the [employer] system. in this encounter Plan of Treatment Not on fileas of this encounter Visit Diagnoses Not on filein this encounter
--- OUTSIDE RECORDS SUMMARY | 2017-10-24 19:34 | XMS REPORT | Encounter Summary ---
Author Author [facility] Organization [facility] Address Unknown Phone Unavailable Care Team Providers Care Drug Inspector Name Role Phone PCP Unavailable Encounter Details Date Type Department Care Team Description 08/07/2017 Procedure Pass [facility] Radiology [address] [place] [address] Social History Tobacco Use Types Packs/Day Years [...] impairment: No 07/08/2017 as of this encounter Plan of Treatment Not on fileas of this encounter Visit Diagnoses Not on filein this encounter
--- OUTSIDE RECORDS SUMMARY | 2017-10-24 19:34 | XMS REPORT | Encounter Summary ---
Author Author [facility] Organization [facility] Address Unknown Phone Unavailable Care Team Providers Care Clearing Inspector Name Role Phone PCP Unavailable Reason for Visit * Reason Comments Hearing Testing Encounter Details Date Type Department Care Team Description 08/13/2017 Clinical [facility] Deysi Oconnell AUD Malignant neoplasm of Support Physicians - ENT upper-outer quadrant of 3RD FLOOR POD C left female breast, [address] MED unspecified estrogen OFFICE BLDG receptor status (HCC) [place] [address] Social History Tobacco Use Types Packs/Day Years [...] Treatment Not on fileas of this encounter Procedures Procedure Name Priority Date/Time Associated Diagnosis Comments OTOACOUSTIC EMMISSIONS Routine 08/13/2017 12:00 AM CDT AUDIOMETRY WITH Routine 08/13/2017 TYMPANOMETRY 12:00 AM CDT in this encounter Visit Diagnoses Diagnosis Malignant neoplasm of upper-outer quadrant of left female breast, unspecified estrogen receptor status (HCC) in this encounter
--- OUTSIDE RECORDS SUMMARY | 2017-10-24 19:34 | XMS REPORT | Encounter Summary ---
Author Author [facility] Organization [facility] Address Unknown Phone Unavailable Care Team Providers Care Test Data Developer Name Role Phone PCP Unavailable Encounter Details Date Type Department Care Team Description 08/15/2017 Pre/Post [facility] Tono Snow RN Procedure Hospital Radiology [address] [place] [address] Social History Tobacco Use Types Packs/Day Years [...] impairment: No 07/08/2017 as of this encounter Progress Notes * Tono Snow RN - 08/15/2017 4:16 PM CDT Formatting of this note may be different from the original. Interventional Radiology Outpatient Scheduling Checklist 1. Procedure: Liver Mass BX with Dr Henderson. Pt denies Hx of AB. Pt aware of an extended recovery 2. Date of Procedure: 08/19/17 3. Arrival Time: 1200 4. Procedure Time: 1315 5. Correct Procedural Room Assignment: [facility] Room #7 SONO 6. Blood Thinners Triaged and instructed per protocol: N/A 7. Order Verified: Yes 8. Patient informed regarding procedure: Yes 9. Patient instructed to have a newspaper delivery driver: Yes 10. Patient instructed on NPO status: 8 hours solids and 2 hours clear liquids Pt verbalized understanding NPO after 0500 clear liquids 1100 11. Specimen needed: Y/N: Yes 12. Allergies Verified: Y/N: Yes 13. Iodine Allergy: Y/N: If yes and receiving Iodine has the patient been premedicated: Y/N: No 14. Does the patient have labs according to IR procedural policy: Y/N: Yes 15. Will the patient need to be admitted/possible admission: Y/N: NO 16. If YES to possible admission has the patient been instructed: Y/N: 17. Patient States Understanding: Y/N Yes 08/15/2017 3:25 PM CDT by Tono Snow RN Approved? IR procedure approved Case Type: Body Modality: Ultrasound Position: Supine Preferred Location: [facility] Physician: Specific Whom? ZC in this encounter Plan of Treatment Not on fileas of this encounter Visit Diagnoses Not on filein this encounter
--- OUTSIDE RECORDS SUMMARY | 2017-10-24 19:34 | XMS REPORT | Encounter Summary ---
Author Author [facility] Organization [facility] Address Unknown Phone Unavailable Care Team Providers Care Crm Architect Name Role Phone PCP Unavailable Reason for Visit * Radiology Services Status Reason Specialty Diagnoses / Referred By Referred To Procedures Contact Contact No Auth Needed Radiology Diagnoses Andrade Park, [facility] Nuclear Med Malignant MD [address] neoplasm of left [address] breast in [place], [place] female, estrogen [place] [address] [address] receptor [place], [place] Phone: negative, [phone] unspecified site Phone: of breast (HCC) [phone] P Fax: [email or web address] [phone] NM BONE SCAN WHOLEBODY Encounter Details Date Type Department Care Team Description 08/09/2017 Hospital [facility] Andrade Park MD Encounter Hospital Radiology [address] [place] [address] [place] [address] [place] [address] [phone] Social History Tobacco Use Types Packs/Day Years [...] impairment: No 07/08/2017 as of this encounter Medications at Time of Discharge Medication Sig. Disp. Refills Start Date End Date other medication 1 Dose once. MSN w/ 08/14/2017 Glucosamin other medication 1 Dose once. Tumeric ... 08/14/2017 as of this encounter Plan of Treatment Not on fileas of this encounter Visit Diagnoses Not on filein this encounter
--- OUTSIDE RECORDS SUMMARY | 2017-10-24 19:34 | XMS REPORT | Encounter Summary ---
Author Author [facility] Organization [facility] Address Unknown Phone Unavailable Care Team Providers Care Rehabilitation Assistant Name Role Phone PCP Unavailable Encounter Details Date Type Department Care Team Description 08/07/2017 Procedure Pass [facility] Radiology [address] [place], [place] [id number] Social History Tobacco Use Types Packs/Day Years [...]
--- OUTSIDE RECORDS SUMMARY | 2017-10-24 19:34 | XMS REPORT | Encounter Summary ---
Author Author [facility] Organization [facility] Address Unknown Phone Unavailable Care Team Providers Care Wet Cleaner Machine Name Role Phone PCP Unavailable Encounter Details Date Type Department Care Team Description 08/09/2017 [facility] Andrade Park MD Encounter [facility] [address] [place] [address] [place] [address] [place] [address] [phone] Social History Tobacco Use Types Packs/Day Years [...]
--- OUTSIDE RECORDS SUMMARY | 2017-10-24 19:34 | XMS REPORT | Encounter Summary ---
Author Author [facility] Organization [facility] Address Unknown Phone Unavailable Care Team Providers Care Lard Refiner Name Role Phone PCP Unavailable Encounter Details Date Type Department Care Team Description 08/13/2017 Documentation [facility] Andrade Park MD Cancer Center - WW Exam [address] [place] [address] [place] [address] [place] [address] [phone] Social History Tobacco Use Types Packs/Day Years [...] as of this encounter Progress Notes * Kadi Jimenez, RN - 08/13/2017 1:29 PM CDT Lab reports, CT CAP and bone scan faxed to Dr.Damodaron ALW with confirmation. in this encounter Plan of Treatment Not on fileas of this encounter Procedures Procedure Name Priority Date/Time Associated Diagnosis Comments ECG-SCAN 09/21/2017 Results for this 10:20 AM SUPER[employer] procedure are in the results section. in this encounter Results * ECG-SCAN (09/21/2017 10:20 AM) Narrative Ordered by an unspecified provider. in this encounter Visit Diagnoses Not on filein this encounter
--- OUTSIDE RECORDS SUMMARY | 2017-10-24 19:34 | XMS REPORT | Encounter Summary ---
Author Author [facility] Organization [facility] Address Unknown Phone Unavailable Care Team Providers Care Armature Repairer Name Role Phone PCP Unavailable Reason for Visit * Reason Comments Research Encounter Details Date Type Department Care Team Description 08/14/2017 Telephone [facility] Andrade Park MD [facility] - CRC [address] [facility] Treatment [place] [address] [place] [address] [place] [address] [phone] Social History Tobacco Use Types Packs/Day Years [...] as of this encounter Miscellaneous Notes * Research - Nakita Rajput - 08/14/2017 4:27 PM CDT Clinical Research Note: [facility][id number] Called patient to confirm potential treatment start date pending screening eligibility. Patient had questions regarding her disease and not regarding the trial. Dr. Park was notified of the questions. I confirmed with the patient that I or Dr. Park will follow up once Dr. Park has reviewed. Potential start date of clinical trial is 08/28/2017. Patient verbalized understanding and confirmed that would work with her schedule. in this encounter Plan of Treatment Not on fileas of this encounter Visit Diagnoses Not on filein this encounter
--- OUTSIDE RECORDS SUMMARY | 2017-10-24 19:34 | XMS REPORT | Encounter Summary ---
Author Author [facility] Organization [facility] Address Unknown Phone Unavailable Care Team Providers Care Physician Office Secretary Name Role Phone PCP Unavailable Encounter Details Date Type Department Care Team Description 08/13/2017 Documentation [facility] Andrade Park MD Cancer Center - Study [address] [place] [address] [address] Social History Tobacco Use Types Packs/Day Years [...] as of this encounter Miscellaneous Notes * Rosa - Negar Albarado - 08/13/2017 11:26 AM CDT CLINICAL RESEARCH NOTE FOR [facility] #[id number]: "Phase I/II Study of Cisplatin plus Romidepsin and Nivolumab in Metastatic Triple Negative Breast Cancer or BRCA Mutation-Associated Locally Recurrent or Metastatic Breast Cancer " Consent Version Date: 03/06/2017-01/14/2018 Zachary and her were present for the consent discussion. Clinical trial participation and research nature of the trial were discussed with subject during this visit. Subject was alert and oriented during consent discussion. Subject was informed that clinical trial is voluntary and she may withdraw consent at any time for any reason by notifying study team. Study purpose, procedures, tests, samples to be obtained, potential side effects, benefits, foreseeable risks and duration of study were discussed. HIPAA information, compensation and insurance pre-certification were discussed per consent form. Patient does not want an appointment with the financial counselor. Alternative courses of treatment were also discussed per consent. Subject verbalized understanding. Subject was given time to review the consent form and to discuss participation in this study. Questions asked were answered to their satisfaction and subject voiced desire to sign consent today. Subject signed consent without coercion and undue influence. A copy of the signed consent was given to the subject and scanned to subjects medical record. Contact information for the study team was given to the subject. No research specific procedures took place prior to consenting. Risk of and defects were discussed in detail. Protocol specific methods of contraception and duration were discussed. Subject agreed to use of protocol specific methods of contraception and duration. Subject was informed study participation can be terminated due to disease progression, subject withdrawal, unanticipated toxicity, cash shortage investigator discretion , sponsor or FDA. Subject was informed that new findings involving potential risk will be discussed for continuous consenting to trial. ECG was performed after patient was supine for 5 minutes. Vital signs were performed after patient was resting in a seated position, with both feet on the floor for 5 minutes. Scheduled audiology exam for today. Patient is seeking a second opinion at [facility], but wishes to proceed with screening and enrollment for aforementioned clinical trial. She wishes to receive treatment at the [facility], she was informed that the CRC trial coordinator will contact her about treatment initiation. All questions answered to her satisfaction. J [facility] [phone] in this encounter Plan of Treatment Not on fileas of this encounter Visit Diagnoses Not on filein this encounter
--- OUTSIDE RECORDS SUMMARY | 2017-10-24 19:34 | XMS REPORT | Encounter Summary ---
Author Author [facility] Organization [facility] Address Unknown Phone Unavailable Care Team Providers Care Radiology Scheduler Name Role Phone PCP Unavailable Reason for Referral * Radiology Services Status Reason Specialty Diagnoses / Referred By Referred To Procedures Contact Contact New Request Radiology Diagnoses [place] Malignant neoplasm of left [address] breast in [place] female, estrogen [place] [address] receptor [place], [place] negative, [address] unspecified site Phone: of breast ([facility]) [phone] P Fax: rocedRevizer [phone] CT CHEST W CONTRAST * Radiology Services Status Reason Specialty Diagnoses / Referred By Referred To Procedures Contact Contact New Request Radiology Diagnoses [place] Malignant MD neoplasm of left [address] breast in [place] female, estrogen [place] [address] receptor [place], [place] negative, [address] unspecified site Phone: of breast ([facility]) [phone] P Fax: rocedRevizer [phone] CT CHEST W CONTRAST * Radiology Services Status Reason Specialty Diagnoses / Referred By Referred To Procedures Contact Contact No Auth Needed Radiology Diagnoses [place], Icc Ct Malignant [address] neoplasm of left [address] [place], [place] breast in [place] [address] female, estrogen [place] [address] Phone: receptor [place], [place] [phone] negative, [address] unspecified site Phone: of breast ([facility]) [phone] P Fax: [employer]ced[employer]izer [phone] CT ABD/PELV W CONTRAST * Radiology Services Status Reason Specialty Diagnoses / Referred By Referred To Procedures Contact Contact No Auth Needed Radiology Diagnoses [place], Icc Ct Malignant [address] neoplasm of left [address] [place], [place] breast [place] [address] female, estrogen [place] [address] Phone: receptor [place], [place] [phone] negative, [address] unspecified site Phone: of breast ([facility]) [phone] P Fax: [employer]ced[employer]izer [phone] CT ABD/PELV W CONTRAST Reason for Visit * Radiology Services Status Reason Specialty Diagnoses / Referred By Referred To Procedures Contact Contact No Auth Needed Radiology Diagnoses [place], Icc Ct Malignant [address] neoplasm of left [address] [place], [place] breast [place] [address] female, estrogen [place] [address] Phone: receptor [place], [place] [phone] negative, [address] unspecified site Phone: of breast ([facility]) [phone] P Fax: roced[employer]izer [phone] CT ABD/PELV W CONTRAST Encounter Details Date Type Department Care Team Description 08/09/2017 [facility] [place] MD Encounter [facility] [address] [place] [address] [place] [address] [place] [address] [place] [address] [phone] Social History Tobacco Use Types Packs/Day Years [...] Treatment Not on fileas of this encounter Results * CT CHEST W CONTRAST (08/09/2017 10:47 [...] M.D. on 08/09/2017 11:24 AM. * CT ABD/PELV W CONTRAST (08/09/2017 10:47 [...] Davenport M.D. on 08/09/2017 11:24 AM. * COMPREHENSIVE METABOLIC PANEL (08/09/2017 9:51 AM) [...] Pharmacist for questions. Specimen Performing Laboratory Blood [facility] [address] [place] [address] * CBC AND DIFF (08/09/2017 9:51 AM) [...] - 0.20 K/UL Specimen Performing Laboratory Blood [facility] [address] [place] [address] in this encounter Visit Diagnoses Diagnosis Malignant neoplasm of left breast in female, estrogen receptor negative, unspecified site of breast (HCC) in this encounter Administered Medications Medication Order MAR Action Action Date Dose Rate Site iohexol (OMNIPAQUE-350) 350 mg/mL Given 08/09/2017 100 mL injection 100 mL 10:46 CDT 100 mL, Intravenous, ONCE, 1 dose, Sat08/09/17 at 1000, NOTE: This is a HIGH ALERT Medication. sodium chloride PF 0.9% injection 50 mL Given 08/09/2017 50 mL 50 mL, Intravenous, ONCE, 1 dose, Sat 10:46 CDT 08/09/17 at 1000, Intra-procedure (IR) in this encounter
--- OUTSIDE RECORDS SUMMARY | 2017-10-24 19:34 | XMS REPORT | Encounter Summary ---
Author Author [facility] Organization [facility] Address Unknown Phone Unavailable Care Team Providers Care Film Sorter Name Role Phone PCP Unavailable Reason for Visit * Reason Comments Research Encounter Details Date Type Department Care Team Description 08/23/2017 Telephone [facility] [place] MD [facility] - CRC [address] [facility] Treatment [place] [address] [place] [address] [place] [address] [phone] Social History Tobacco Use Types Packs/Day Years [...] * Telephone Encounter - Nakita Rajput - 08/23/2017 10:59 AM CDT Clinical Research Note: Romide[facility][id number] Called patient to follow up to see if she is interested in the pursing the Romidepsin clinical trial. She is currently looking at other options outside of . Patient plans to call next week to confirm if she would like to proceed with the trial at . Screening procedures will need to be scheduled prior to her starting treatment. Team was notified regarding the update. in this encounter Plan of Treatment Not on fileas of this encounter Visit Diagnoses Not on filein this encounter
--- OUTSIDE RECORDS SUMMARY | 2017-10-24 19:34 | XMS REPORT | Encounter Summary ---
Author Author [facility] Organization [facility] Address Unknown Phone Unavailable Care Team Providers Care Is/It Project Manager Name Role Phone PCP Unavailable Reason for Referral * Radiology Services Status Reason Specialty Diagnoses / Referred By Referred To Procedures Contact Contact No Auth Needed Radiology Diagnoses [place] Bh[facility] Malignant [address] neoplasm of left [address] breast in [place], [place] female, estrogen [place] [address] [address] [address] [place], [place] Phone: negative, [address] unspecified site Phone: of breast ([facility]) [phone] P Fax: rocedSitefly [phone] NM BONE SCAN WHOLEBODY * Radiology Services Status Reason Specialty Diagnoses / Referred By Referred To Procedures Contact Contact No Auth Needed Radiology Diagnoses [place] Bh2 Nuclear Med Malignant [address] neoplasm of left [address] breast in [place], [place] female, estrogen [place] [address] [address] [address] [place], [place] Phone: negative, [address] unspecified site Phone: of breast ([facility]) [phone] P Fax: [employer]ced[employer]fly [phone] NM BONE SCAN WHOLEBODY Reason for Visit * Radiology Services Status Reason Specialty Diagnoses / Referred By Referred To Procedures Contact Contact No Auth Needed Radiology Diagnoses [place] Bh2 Nuclear Med Malignant [address] neoplasm of left [address] breast in [place], [place] female, estrogen [address] [address] [address] [place], [place] Phone: negative, [address] unspecified site Phone: of breast (HCC) [phone] P Fax: rocedures [phone] NM BONE SCAN WHOLEBODY Encounter Details Date Type Department Care Team Description 08/09/2017 [facility] [place] MD Encounter [facility] Radiology [address] [place] [address] [place] [address] [place] [address] [place] [address] [phone] Social History Tobacco Use Types Packs/Day Years [...] on fileas of this encounter Results * NM BONE SCAN WHOLEBODY (08/09/2017 3:39 [...] Ollie Weathers M.D. on 08/09/2017 3:41 PM. in this encounter Visit Diagnoses Diagnosis Malignant neoplasm of left breast in female, estrogen receptor negative, unspecified site of breast (HCC) in this encounter Administered Medications Medication Order MAR Action Action Date Dose Rate Site RP DX Tc-99m medronate (MDP) injection Given 08/09/2017 25.8 25 millicurie 12:27 CDT millicuries 25 millicurie, Intravenous, ONCE, 1 dose, Sat08/09/17 at 1245 in this encounter
--- OUTSIDE RECORDS SUMMARY | 2017-10-24 19:34 | XMS REPORT | Encounter Summary ---
Author Author [facility] Organization [facility] Address Unknown Phone Unavailable Care Team Providers Care Strength And Conditioning Coach Name Role Phone PCP Unavailable Reason for Visit * Reason Comments Appointment Called Pt. to advise she can do her Labs at 10:00am in Imaging at since her CT is here at 10:15am. Advised to arrive by 9:30am at [facility]...08/07/17- Encounter Details Date Type Department Care Team Description 08/08/2017 Telephone [facility] [place] MD Appointment (Called Pt. Cancer Center - Exam [address] to advise she can do her [address] [place] [address] Labs at 10:00am [place] [address] [place] [address] Imaging at since her [phone] CT is here at 10:15am. Advised to arrive by 9:30am at ...08/07/17-) Social History Tobacco Use Types Packs/Day Years [...] encounter Miscellaneous Notes * Telephone Encounter - Haleigh Mcdonald - 08/08/2017 4:01 PM CDT Called Pt. to advise she can do her Labs at 10:00am in Imaging at since her CT is here at 10:15am. Advised to arrive by 9:30am at ...08/07/17-SB * Telephone Encounter - Haleigh Mcdonald - 08/08/2017 3:53 PM CDT ----- Message from Kadi Jimenez RN sent at 08/08/2017 12:29 PM CDT ----- Diagnosis code (ICD10): C50.12 Ordering Doctor/MING: Christian Nurse draw or phlebotomy draw: cbc, cmp. Can you please assist pt with labs appt prior to her CT scan tomorrow at [facility] location. Thank you in this encounter Plan of Treatment Not on fileas of this encounter Visit Diagnoses Not on filein this encounter
--- OUTSIDE RECORDS SUMMARY | 2017-10-24 19:34 | XMS REPORT | Encounter Summary ---
Author Author [facility] Organization [facility] Address Unknown Phone Unavailable Care Team Providers Care Manager Enterprise Content Management Name Role Phone PCP Unavailable Encounter Details Date Type Department Care Team Description 08/07/2017 Procedure Pass [facility] Radiology [address] [facility] [address] [place], [place] [id number] Social History Tobacco Use Types Packs/Day Years [...]
--- OUTSIDE RECORDS SUMMARY | 2017-10-24 19:34 | XMS REPORT | Encounter Summary ---
Author Author [facility] Organization [facility] Address Unknown Phone Unavailable Care Team Providers Care Betting Clerk Name Role Phone PCP Unavailable Reason for Referral * Radiology Services Status Reason Specialty Diagnoses / Referred By Referred To Procedures Contact Contact No Auth Needed Radiology Diagnoses [place], 2 [place] Malignant [address] neoplasm of [address] [facility] [address]LO[address] breast in [place], [place] female, estrogen [address] [address] [address] [place], [place] Phone: negative, [address] unspecified Phone: laterality, unspecified site Fax: of breast (HCC) [phone] Malignant neoplasm of left breast in female, estrogen receptor negative, unspecified site of breast (HCC) P rocedures IR PERCUTANEOUS BIOPSY Encounter Details Date Type Department Care Team Description 08/15/2017 Orders Only [facility] [place] MD Malignant neoplasm of [facility] - [facility] Exam [address] [facility] left breast in female, [address] [facility] [address] [place] [address] [place] [address] negative, unspecified [phone] site of breast (HCC) (Primary Dx);Malignant neoplasm of breast in female, estrogen receptor negative, unspecified laterality, unspecified site of breast (HCC) Social History Tobacco Use Types Packs/Day Years [...] as of this encounter Plan of Treatment Name Priority Associated Diagnoses Order Schedule IR PERCUTANEOUS BIOPSY STAT Malignant neoplasm of Expected: 08/15/2017 breast in female, (Approximate), Expires: estrogen receptor 08/15/2018 negative, unspecified laterality, unspecified site of breast (HCC) Malignant neoplasm of left breast in female, estrogen receptor negative, unspecified site of breast (HCC) as of this encounter Visit Diagnoses Diagnosis Malignant neoplasm of left breast in female, estrogen receptor negative, unspecified site of breast (HCC) - Primary Malignant neoplasm of breast in female, estrogen receptor negative, unspecified laterality, unspecified site of breast (HCC) in this encounter
--- OUTSIDE RECORDS SUMMARY | 2017-10-24 19:34 | XMS REPORT | Encounter Summary ---
Author Author [facility] Organization [facility] Address Unknown Phone Unavailable Care Team Providers Care Warehouse Sorter Name Role Phone PCP Unavailable Reason for Referral * Test Status Reason Specialty Diagnoses / Referred By Referred To Procedures Contact Contact No Auth Needed Cardiology Diagnoses [place] Mac-Ovpk Echo/Pv Malignant [address] neoplasm of [address] breast in [place], [place] female, estrogen [place] [address] [address] [address] [place], [place] Phone: negative, [phone] unspecified Phone: laterality, unspecified site Fax: of breast (HCC) [phone] P rocedures 2-D ECHOCARDIOGRAM ONLY [place] ECHO TRANSTHORAC R-T 2D W/WO M-MODE REC COMP Reason for Visit * Reason Comments Heme/Onc Care Encounter Details Date Type Department Care Team Description 08/13/2017 Office Visit [facility] Andrade Park MD Malignant neoplasm of [facility] Exam [address] [facility] breast in female, [address] [place] [address] [place] [address] negative, unspecified [phone] laterality, unspecified site of breast (HCC) (Primary Dx);Clinical trial participant Social History Tobacco Use Types Packs/Day Years Used Date Never Smoker Alcohol Use Drinks/Week oz/Week Comments No Sex Assigned at Date Recorded Not on file as of this encounter Last Filed Vital Signs Vital Sign Reading [...] Mass Index 24.14 08/13/2017 9:31 AM CDT in this encounter Functional Status Functional Status Response [...] as of this encounter Progress Notes * Andrade Park MD - 08/13/2017 9:15 AM CDT Formatting of this note may be different from the original. ATTESTATION I personally performed the pino portions of the E/M visit, discussed case with TOHMAS Davies and concur with her documentation of history, physical exam, assessment, and treatment plan unless otherwise noted. Staff name: Andrade Park MD Date: 08/18/2017 * Tanya Stanton APRN - 08/13/2017 9:15 AM CDT Formatting of this note may be different from the original. Date of Service: 08/13/2017 Subjective: Reason for Visit: Heme/Onc Care Diagnosis: IDC, grade 3, ER 0%, [place] 0%, HER2: 0+ Stage: Malignant neoplasm of upper-outer quadrant of left female breast (HCC) Staging form: Breast, AJCC 7th Edition Clinical stage from 07/31/2016: Stage IIA (T2, N0, M0) - Signed by Noemi Zuleta PA-C on 07/31/2016 Pathologic: Stage IIA (T2, N0, cM0) - Unsigned Zachary Mckeon is a 37 y.o. female with no significant medical history who palpated a left breast lump on 07/13/2016. On 07/20/2016, she had a Diagnostic Bilateral Mammogram ([facility]ia [facility]) which showeda posterior upper left breast mass only partially visualized on this study due to its posterior location.Same day Ultrasound Left Breast showed a 2.3 cm 10 o' clock left breast mass very suspicious for breast cancer. It extends to the posterior margin of the breast. US-Guided Left Breast Needle Biopsy ([facility]) shows Infiltrating mammary carcinoma, ductal type, grade 3, ER 0%, [place] 0%, HER2: 0+. B. Lymph node, left axilla, ultrasound-guided needle biopsy shows fragments of benign lymphoid tissue; no malignancy identified. CT CAP was completed that did not show any evidence of metastatic disease. There was a suspected bone island in the femur; bone scan was negative. We recommended a jed-adjuvant clinical trial with Taxotere/Carbo every 3 weeks x 6; completed 11/23/16. On 12/13/16 Dr Thurman performed a left lumpectomy and SLNB at . Pathology revealed IDC, grade III, measuring 1.8cm, ER 0%, [place] 0%, HER2 0+ IHC, Ki67 99% and 0 LN involved (0/5). History of Present Illness The patient presents for results of scans. She was having abdominal pain and so CT CAP and bone scan ordered which shows liver mets. Review of Systems Constitutional: Positive for activity change. Negative for fever, appetite change, fatigue and unexpected weight change. + hot flashes; HENT: Negative for congestion, mouth sores and sore throat. Eyes: Negative for discharge and visual disturbance. Respiratory: Negative. Negative for cough, shortness of breath and wheezing. Cardiovascular: Negative. Negative for chest pain, palpitations and leg swelling. Gastrointestinal: Negative for nausea, vomiting, + abdominal pain, diarrhea, constipation, abdominal distention and anal bleeding. Genitourinary: Negative. Negative for hematuria, vaginal bleeding and vaginal discharge. Pre menopausal Musculoskeletal: Negative for myalgias, back pain and arthralgias. Skin: Negative for pallor and rash. Neurological: Negative for dizziness, numbness and headaches. Hematological: Negative. Negative for adenopathy. Psychiatric/Behavioral: Negative for dysphoric mood and decreased concentration. All other systems reviewed and are negative. Allergies Allergen Reactions Progesterone ITCHING Objective: other medication 1 Dose once. MSN w/ Glucosamin other medication 1 Dose once. Tumeric ... oxyCODONE (ROXICODONE, OXY-IR) 5 mg tablet Take 1 tablet by mouth every 4 hours as needed for Pain Vitals: 08/13/17 0931 BP: 140/79 Pulse: 96 Resp: 16 Temp: 36.7 C (98.1 F) TempSrc: Oral SpO2: 100% Weight: 61.3 kg (135 lb 3.2 oz) Height: 159.4 cm (62.76") Body mass index is 24.14 kg/(m^2). Pain Score: Five Pain Loc: Abdomen Pain Addressed: no pain Patient Evaluated for a Clinical Trial: Patient currently in screening for a treatment clinical trial. Eastern Cooperative Oncology Group performance status is 0, Fully active, able to carry on all pre-disease performance without restriction.. Physical Exam Constitutional: She is oriented to person, place, and time. She appears well- developed and well-nourished. HENT: Head: Normocephalic and atraumatic. Right Ear: External ear normal. Mouth/Throat: No oropharyngeal exudate. Eyes: Conjunctivae and EOM are normal. Pupils are equal, round, and reactive to light. Neck: Normal range of motion. Neck supple. Cardiovascular: Normal rate, regular rhythm and normal heart sounds. No murmur heard. Pulmonary/Chest: Effort normal and breath sounds normal. No respiratory distress. She has no wheezes. She has no rales. She exhibits no tenderness. Right breast exhibits no inverted nipple, no mass, no nipple discharge, no skin change and no tenderness. Left breast exhibits no inverted nipple, no mass, no nipple discharge, no skin change and no tenderness. Abdominal: Soft. Bowel sounds are normal. She exhibits no distension and no mass. There is no tenderness. There is no rebound and no guarding. Musculoskeletal: Normal range of motion. She exhibits no edema or tenderness. Lymphadenopathy: She has no cervical adenopathy. She has no axillary adenopathy. Right: No supraclavicular adenopathy present. Left: No supraclavicular adenopathy present. Neurological: She is alert and oriented to person, place, and time. Skin: Skin is warm and dry. No rash noted. Psychiatric: She has a normal mood and affect. Her behavior is normal. Nursing note and vitals reviewed. LABS/RADIOLOGY: CBC w/Diff Lab Results Component Value Date/Time WBC 6.8 08/09/2017 09:51 AM RBC 4.21 08/09/2017 09:51 AM HGB 13.3 08/09/2017 09:51 AM HCT 39.0 08/09/2017 09:51 AM MCV 92.7 08/09/2017 09:51 AM MCH 31.6 08/09/2017 09:51 AM MCHC 34.2 08/09/2017 09:51 AM RDW 12.9 08/09/2017 09:51 AM PLTCT 268 08/09/2017 09:51 AM MPV 7.8 08/09/2017 09:51 AM Lab Results Component Value Date/Time NEUT 62 08/09/2017 09:51 AM ANC 4.20 08/09/2017 09:51 AM LYMA 25 08/09/2017 09:51 AM ALC 1.70 08/09/2017 09:51 AM MARY JO 10 08/09/2017 09:51 AM AMC 0.70 08/09/2017 09:51 AM EOSA 2 08/09/2017 09:51 AM AEC 0.10 08/09/2017 09:51 AM BASA 1 08/09/2017 09:51 AM ABC 0.10 08/09/2017 09:51 AM Comprehensive Metabolic Profile Lab Results Component Value Date/Time NA 137 08/09/2017 09:51 AM K 3.9 08/09/2017 09:51 AM CL 102 08/09/2017 09:51 AM CO2 25 08/09/2017 09:51 AM GAP 10 08/09/2017 09:51 AM BUN 15 08/09/2017 09:51 AM CR 0.84 08/09/2017 09:51 AM GLU 95 08/09/2017 09:51 AM Lab Results Component Value Date/Time CA 10.2 08/09/2017 09:51 AM PO4 3.4 07/16/2017 11:15 AM ALBUMIN 4.6 08/09/2017 09:51 AM TOTPROT 7.8 08/09/2017 09:51 AM ALKPHOS 129 (H) 08/09/2017 09:51 AM AST 170 (H) 08/09/2017 09:51 AM ALT 198 (H) 08/09/2017 09:51 AM TOTBILI 0.4 08/09/2017 09:51 AM GFR >60 08/09/2017 09:51 AM GFRAA >60 08/09/2017 09:51 AM Bone scan 08/09/17: No scintigraphic evidence of osseous metastatic disease. CT CAP 08/09/17: CHEST: 1. Interval left lumpectomy. There has [...] disease. 2. No abdominopelvic lymphadenopathy or ascites. Assessment and Plan: 1. Ms. Mckeon is a 37 y.o. female with IDC, grade 3, ER 0%, [place] 0%, HER2: 0+ , cT2N0. 2. History of stroke in 2011. 3. Enrolled in NEOSTOP trial which is a randomized trial which compares wTaxol+ Carboplatin (AUC 6 every 3 weeks) X 4 cycles followed by DDAC x 4 cycles to Carboplatin AUC 6 + Docetaxel 75mg/m2 X 6 cycles. Primary end point of the study is pathological response. Patient was randomized to TC arm; completed 11/23. 4. On 12/13/16 Dr Thurman performed a left lumpectomy and SLNB at . Pathology revealed IDC, grade III, measuring 1.8cm, ER 0%, [place] 0%, HER2 0+ IHC, Ki67 99% and 0 LN involved (0/5). 5. Received AC every 3 weeks x4 with neulasta support; completed 03/29/17. 6. Completed radiation under the care of Dr. Rain; 06/05/17. 7. New abdominal pain; CT 08/09/17 showed multiple hepatic masses compatible with hepatic metastatic disease. We will not obtain an biopsy at this time. She was told that the cancer is stage IV and we can not cure the cancer. She was given a prescription for Oxycodone. 8. We are recommending a clinical trial with Cisplatin/Romidepsin/Nivolumab. She was told the side effects and signed consent. 9. She will also get a second opinion at [facility]. 10. RTC in 1-2 weeks to start the clinical trial. Tanya Stanton APRN I have personally interviewed and examined the patient. I have reviewed the history, physical, impression and plan outlined by Tanya Stanton BINDERY PRODUCTION MANAGER. HPI: The patient presents for continued breast cancer treatment. On examination: HEENT: No icterus, PERRL. Oropharynx is normal; no exudate or lesions. Neck: No JVD, supple. Adenopathy: None. Chest: CTA bilaterally. CV: RRR without murmur. Breasts: Right: No nipple discharge, skin nodules or masses. Left: Lumpectomy Abdomen: Soft, non-distended, Positive bowel sounds. Skin: No rash. Back: no pain with palpation over the T-spine. Extremities: No clubbing or cyanosis. Neuro: CN: II-XII intact; no sensory or motor abnormalities noted. My impression: Stage IV breast cancer My plan: start the clinical trial in this encounter Plan of Treatment Name Priority Associated Diagnoses Order Schedule CBC AND DIFF Routine Malignant neoplasm of Expected: 08/20/2017 breast in female, (Approximate), Expires: estrogen receptor 08/13/2018 negative, unspecified laterality, unspecified site of breast (HCC) COMPREHENSIVE METABOLIC PANEL Routine Malignant neoplasm of Expected: breast in female, (Approximate), Expires: estrogen receptor 08/13/2018 negative, unspecified laterality, unspecified site of breast (HCC) MAGNESIUM Routine Malignant neoplasm of Expected: 08/20/2017 breast in female, (Approximate), Expires: estrogen receptor 08/13/2018 negative, unspecified laterality, unspecified site of breast (HCC) PHOSPHORUS Routine Malignant neoplasm of Expected: 08/20/2017 breast in female, (Approximate), Expires: estrogen receptor 08/13/2018 negative, unspecified laterality, unspecified site of breast (HCC) PROTIME INR (PT) Routine Malignant neoplasm of Expected: 08/20/2017 breast in female, (Approximate), Expires: estrogen receptor 08/13/2018 negative, unspecified laterality, unspecified site of breast (HCC) Clinical trial participant BETA-HCG Routine Malignant neoplasm of Expected: 08/20/2017 breast in female, (Approximate), Expires: estrogen receptor 08/13/2018 negative, unspecified laterality, unspecified site of breast (HCC) BILIRUBIN, DIRECT Routine Malignant neoplasm of Expected: 08/20/2017 breast in female, (Approximate), Expires: estrogen receptor 08/13/2018 negative, unspecified laterality, unspecified site of breast (HCC) HEPATITIS B SURFACE AG Routine Malignant neoplasm of Expected: 2016 breast in female, (Approximate), Expires: estrogen receptor 08/13/2018 negative, unspecified laterality, unspecified site of breast (HCC) THYROID STIMULATING HORMONE-TSH Routine Malignant neoplasm of Expected: 08/20/2017 breast in female, (Approximate), Expires: estrogen receptor 08/13/2018 negative, unspecified laterality, unspecified site of breast (HCC) FREE T3 (FREE TRIIODOTHYONINE) Routine Malignant neoplasm of Expected: 08/20/2017 breast in female, (Approximate), Expires: estrogen receptor 08/13/2018 negative, unspecified laterality, unspecified site of breast (HCC) HEPATITIS C AB Routine Malignant neoplasm of Expected: 08/20/2017 breast in female, (Approximate), Expires: estrogen receptor 08/13/2018 negative, unspecified laterality, unspecified site of breast (HCC) FREE T4 (FREE THYROXINE) ONLY Routine Malignant neoplasm of Expected: breast in female, (Approximate), Expires: estrogen receptor 08/13/2018 negative, unspecified laterality, unspecified site of breast (HCC) CORTISOL,RANDOM Routine Malignant neoplasm of Expected: 08/20/2017 breast in female, (Approximate), Expires: estrogen receptor 08/13/2018 negative, unspecified laterality, unspecified site of breast (HCC) ACTH Routine Malignant neoplasm of Expected: 08/20/2017 breast in female, (Approximate), Expires: estrogen receptor 08/13/2018 negative, unspecified laterality, unspecified site of breast (HCC) 2-D ECHOCARDIOGRAM ONLY Routine Malignant neoplasm of Expected: 2016 breast in female, (Approximate), Expires: estrogen receptor 08/13/2018 negative, unspecified laterality, unspecified site of breast (HCC) as of this encounter Visit Diagnoses Diagnosis Malignant neoplasm of breast in female, estrogen receptor negative, unspecified laterality, unspecified site of breast (HCC) - Primary Clinical trial participant in this encounter
--- OUTSIDE RECORDS SUMMARY | 2017-10-24 19:35 | XMS REPORT | Encounter Summary ---
Author Author [facility] Organization [facility] Address Unknown Phone Unavailable Care Team Providers Care Elevator Attendant Name Role Phone PCP Unavailable Encounter Details Date Type Department Care Team Description 08/08/2017 Orders Only [facility] Andrade Park MD Malignant neoplasm of [facility] Exam [address] breast in female, [address] [place] [address] [place] [address] negative, unspecified [phone] site of breast (Primary Dx) Social History Tobacco Use Types Packs/Day Years [...] on fileas of this encounter Results * COMPREHENSIVE METABOLIC PANEL (08/09/2017 9:51 AM) [...] Pharmacist for questions. Specimen Performing Laboratory Blood [facility] [address] [id number] * CBC AND DIFF (08/09/2017 9:51 AM) [...] - 0.20 K/UL Specimen Performing Laboratory Blood [facility] [address] [place] [address] in this encounter Visit Diagnoses Diagnosis Malignant neoplasm of left breast in female, estrogen receptor negative, unspecified site of breast (HCC) - Primary in this encounter
--- OUTSIDE RECORDS SUMMARY | 2017-10-24 19:35 | XMS REPORT | Continuity of Care Document ---
Author Author [facility] Organization [facility] Address Unknown Phone Unavailable Allergies Active Description Code Type Severity Reaction Onset Reported/Identified Relationship to Patient Clinical Status Yes No Known Drug Allergies [id number] Drug Allergy Unknown N/A 03/24/2008 Medications There is no data. 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.4 BRACHIAL NEURITIS NOS 07/24/2016 Ot 780.4 DIZZINESS AND GIDDINESS 07/24/2016 Ot 782.0 SKIN SENSATION DISTURB 07/24/2016 ANNETTE WILLIAMSON MD Ot V28.81 ENCOUNTER FOR ANATOMIC SURVEY 07/24/2016 ANNETTE WILLIAMSON MD Ot V22.1 SUPERVIS OT NORMAL PREG 07/24/2016 ANNETTE WILLIAMSON MD Ot N63 UNSPECIFIED LUMP IN BREAST 07/24/2016 ANNETTE WILLIAMSON MD Ot R59.0 LOCALIZED ENLARGED LYMPH NODES 07/25/2016 ANNETTE WILLIAMSON MD Ot C50.912 MALIGNANT NEOPLASM OF UNSPECIFIED SITE O 07/25/2016 ANNETTE WILLIAMSON MD Ot R59.0 LOCALIZED ENLARGED LYMPH NODES 07/26/2016 ARNULFO LANDRY Ot C50.912 MALIGNANT NEOPLASM OF UNSPECIFIED SITE O 07/27/2016 ARNULFO LANDRY Ot C50.912 MALIGNANT NEOPLASM OF UNSPECIFIED SITE O 07/27/2016 RUDOLPH LOUIE, MELISSA Hall Ot C50.919 MALIGNANT NEOPLASM OF UNSP SITE OF UNSPE 07/27/2016 RUDOLPH OLUIE, MELISSA Hall Ot Z01.818 ENCOUNTER FOR OTHER PREPROCEDURAL EXAMIN 07/30/2016 ARNULFO LANDRY Ot C50.912 MALIGNANT NEOPLASM OF UNSPECIFIED SITE O 07/30/2016 Ot 723.4 BRACHIAL NEURITIS NOS 07/30/2016 Ot 780.4 DIZZINESS AND GIDDINESS 07/30/2016 Ot 782.0 SKIN SENSATION DISTURB 07/30/2016 ANNETTE WILLIAMSON MD Ot V28.81 ENCOUNTER FOR ANATOMIC SURVEY 07/30/2016 ANNETTE WILLIAMSON MD Ot V22.1 SUPERVIS OTH NORMAL PREG 07/30/2016 ANNETTE WILLIAMSON MD Ot C50.912 MALIGNANT NEOPLASM OF UNSPECIFIED SITE O 07/30/2016 ANNETTE WILLIAMSON MD Ot R59.0 LOCALIZED ENLARGED LYMPH NODES 07/30/2016 ARNULFO LANDRY Ot C50.912 MALIGNANT NEOPLASM OF UNSPECIFIED SITE O 07/30/2016 ARNULFO LANDRY Ot C50.912 MALIGNANT NEOPLASM OF UNSPECIFIED SITE O 07/30/2016 ARNULFO LANDRY Ot C50.912 MALIGNANT NEOPLASM OF UNSPECIFIED SITE O 07/30/2016 RUDOLPH LOUIE, MELISSA Hall Ot C50.912 MALIGNANT NEOPLASM OF UNSPECIFIED SITE O 07/30/2016 RUDOLPH LOUIE, MELISSA Hall Ot Z11.2 ENCOUNTER FOR SCREENING FOR OTHER BACTER 07/31/2016 RUDOLPH LOUIE, MELISSA Hall Ot C50.912 MALIGNANT NEOPLASM OF UNSPECIFIED SITE O 07/31/2016 RUDOLPH LOUIE, MELISSA Hall Ot Z11.2 ENCOUNTER FOR SCREENING FOR OTHER BACTER 08/01/2016 Ot 723.4 BRACHIAL NEURITIS NOS 08/01/2016 Ot 780.4 DIZZINESS AND GIDDINESS 08/01/2016 Ot 782.0 SKIN SENSATION DISTURB 08/01/2016 ANNETTE WILLIAMSON MD Ot V28.81 ENCOUNTER FOR ANATOMIC SURVEY 08/01/2016 ANNETTE WILLIAMSON MD Ot V22.1 SUPERVIS OTH NORMAL PREG 08/01/2016 ANNETTE WILLIAMSON MD Ot C50.912 MALIGNANT NEOPLASM OF UNSPECIFIED SITE O 08/01/2016 ANNETTE WILLIAMSON MD Ot R59.0 LOCALIZED ENLARGED LYMPH NODES 08/01/2016 GRIS, BOBAN N Ot C50.912 MALIGNANT NEOPLASM OF UNSPECIFIED SITE O 08/01/2016 ARNULFO LANDRY N Ot C50.912 MALIGNANT NEOPLASM OF UNSPECIFIED SITE O 08/01/2016 GRIS ARNULFO N Ot C50.912 MALIGNANT NEOPLASM OF UNSPECIFIED SITE O 08/01/2016 ARNULFO LANDRY N Ot C50.912 MALIGNANT NEOPLASM OF UNSPECIFIED SITE O 08/02/2016 GRIS ARNULFO N Ot C50.912 MALIGNANT NEOPLASM OF UNSPECIFIED SITE O 08/07/2016 RUDOLPH LOUIE, MELISSA Hall Ot C50.912 MALIGNANT NEOPLASM OF UNSPECIFIED SITE O 08/07/2016 RUDOLPH LOUIE, MELISSA Hall Ot Z11.2 ENCOUNTER FOR SCREENING FOR OTHER BACTER 08/16/2016 TERI LOUIE, ANNETTE Martinez Ot C50.912 MALIGNANT NEOPLASM OF UNSPECIFIED SITE O 08/16/2016 ANNETTE WILLIAMSON MD Ot R59.0 LOCALIZED ENLARGED LYMPH NODES 08/16/2016 ARNULFO LANDRY N Ot C50.912 MALIGNANT NEOPLASM OF UNSPECIFIED SITE O 08/16/2016 GRISARNULFO N Ot C50.912 MALIGNANT NEOPLASM OF UNSPECIFIED SITE O 08/23/2016 ARNULFO LANDRY N Ot C50.912 MALIGNANT NEOPLASM OF UNSPECIFIED SITE O 09/07/2016 GRISARNULFO N Ot C50.912 MALIGNANT NEOPLASM OF UNSPECIFIED SITE O 10/22/2016 GRIS ARNULFO N Ot C50.912 MALIGNANT NEOPLASM OF UNSPECIFIED SITE O 10/23/2016 ARNULFO LANDRY N Ot C50.912 MALIGNANT NEOPLASM OF UNSPECIFIED SITE O 10/24/2017 Ot 723.4 BRACHIAL NEURITIS NOS 10/24/2017 Ot 780.4 DIZZINESS AND GIDDINESS 10/24/2017 Ot 782.0 SKIN SENSATION DISTURB 10/24/2017 ANNETTE WILLIAMSON MD Ot V28.81 ENCOUNTER FOR ANATOMIC SURVEY 10/24/2017 ANNETTE WILLIAMSON MD Ot V22.1 SUPERVIS OTH NORMAL PREG 10/24/2017 ANNETTE WILLIAMSON MD Ot C50.912 MALIGNANT NEOPLASM OF UNSPECIFIED SITE O 10/24/2017 ANNETTE WILLIAMSON MD Ot R59.0 LOCALIZED ENLARGED LYMPH NODES 10/24/2017 ARNULFO LANDRY Ot C50.912 MALIGNANT NEOPLASM OF UNSPECIFIED SITE O 10/24/2017 ARNULFO LANDRY Ot C50.912 MALIGNANT NEOPLASM OF UNSPECIFIED SITE O 10/24/2017 ARNULFO LANDRY Ot C50.912 MALIGNANT NEOPLASM OF UNSPECIFIED SITE O 10/24/2017 ARNULFO LANDRY Ot C50.912 MALIGNANT NEOPLASM OF UNSPECIFIED SITE O Procedures There is no data. Results Test Result Range Urine beta human chorionic gonadotropin (hCG) measurement - 07/30/16 12:10 Urine beta human chorionic gonadotropin (hCG) measurement NEGATIVE NEGATIVE Methicillin resistant Staphylococcus aureus (MRSA) screening culture - 12:10 Methicillin resistant Staphylococcus aureus (MRSA) screening culture NEG NRG Complete blood count (CBC) with automated white blood cell (WBC) differential - 10/24/17 17:27 Blood leukocytes automated count (number/volume) 4.3 10*3/uL 4.3-11.0 Blood erythrocytes automated count (number/volume) 2.14 10*6/uL 4.35-5.85 Venous blood hemoglobin measurement (mass/volume) 7.4 g/dL 11.5-16.0 Blood hematocrit (volume fraction) 22 % 35-52 Automated erythrocyte mean corpuscular volume 102 [foz_us] 80-99 Automated erythrocyte mean corpuscular hemoglobin (mass per erythrocyte) 35 pg 25-34 Automated erythrocyte mean corpuscular hemoglobin concentration measurement ( mass/volume) 34 g/dL 32-36 Automated erythrocyte distribution width ratio 18.6 % 10.0-14.5 Automated blood platelet count (count/volume) 3 10*3/uL 130-400 Automated blood neutrophils/100 leukocytes 67 % 42-75 Automated blood lymphocytes/100 leukocytes 29 % 12-44 Blood monocytes/100 leukocytes 4 % 0-12 Automated blood eosinophils/100 leukocytes 0 % 0-10 Automated blood basophils/100 leukocytes 1 % 0-10 Blood neutrophils automated count (number/volume) 2.8 10*3 1.8-7.8 Blood lymphocytes automated count (number/volume) 1.2 10*3 1.0-4.0 Blood monocytes automated count (number/volume) 0.2 10*3 0.0-1.0 Automated eosinophil count 0.0 10*3/uL 0.0-0.3 Automated blood basophil count (count/volume) 0.0 10*3/uL 0.0-0.1 PT panel in platelet poor plasma by coagulation assay - 10/24/17 17:27 Prothrombin time (PT) in platelet poor plasma by coagulation assay 16.2 s 12.2-14.7 INR in platelet poor plasma or blood by coagulation assay 1.3 0.8-1.4 Activated partial thromboplastin time (aPTT) in platelet poor plasma bycoagulation assay - 10/24/17 17:27 Activated partial thromboplastin time (aPTT) in platelet poor plasma bycoagulation assay 43 s 24-35 Comprehensive metabolic panel - 10/24/17 17:27 Serum or plasma sodium measurement (moles/volume) 129 mmol/L 135-145 Serum or plasma potassium measurement (moles/volume) 2.6 mmol/L 3.6-5.0 Serum or plasma chloride measurement (moles/volume) 87 mmol/L 98-107 Carbon dioxide 22 mmol/L 21-32 Serum or plasma anion gap determination (moles/volume) 20 mmol/L 5-14 Serum or plasma urea nitrogen measurement (mass/volume) 11 mg/dL 7-18 Serum or plasma creatinine measurement (mass/volume) 0.62 mg/dL 0.60-1.30 Serum or plasma urea nitrogen/creatinine mass ratio 18 NRG Serum or plasma creatinine measurement with calculation of estimated glomerular filtration rate > NRG Serum or plasma glucose measurement (mass/volume) 239 mg/dL 70-105 Serum or plasma calcium measurement (mass/volume) 8.0 mg/dL 8.5-10.1 Serum or plasma total bilirubin measurement (mass/volume) 1.9 mg/dL 0.1-1.0 Serum or plasma alkaline phosphatase measurement (enzymatic activity/volume) 295 U/L 40-136 Serum or plasma aspartate aminotransferase measurement (enzymatic activity/ volume) 527 U/L 5-34 Serum or plasma alanine aminotransferase measurement (enzymatic activity/volume ) 233 U/L 0-55 Serum or plasma protein measurement (mass/volume) 5.7 g/dL 6.4-8.2 Serum or plasma albumin measurement (mass/volume) 2.8 g/dL 3.2-4.5 Pathologist review of blood test by comment - 10/24/17 17:27 Blood leukocytes automated count (number/volume) 4.2 10*3/uL 4.3-11.0 Blood erythrocytes automated count (number/volume) 2.15 10*6/uL 4.35-5.85 Venous blood hemoglobin measurement (mass/volume) 7.4 g/dL 11.5-16.0 Blood hematocrit (volume fraction) 22 % 35-52 Automated erythrocyte mean corpuscular volume 102 [foz_us] 80-99 Automated erythrocyte mean corpuscular hemoglobin (mass per erythrocyte) 34 pg 25-34 Automated erythrocyte mean corpuscular hemoglobin concentration measurement ( mass/volume) 34 g/dL 32-36 Automated erythrocyte distribution width ratio 18.7 % 10.0-14.5 Automated blood platelet count (count/volume) 5 10*3/uL 130-400 Automated blood neutrophils/100 leukocytes 65 % 42-75 Automated blood lymphocytes/100 leukocytes 26 % 12-44 Blood monocytes/100 leukocytes 9 % 0-12 Automated blood eosinophils/100 leukocytes 0 % 0-10 Automated blood basophils/100 leukocytes 1 % 0-10 Blood neutrophils automated count (number/volume) 2.8 10*3 1.8-7.8 Blood lymphocytes automated count (number/volume) 1.1 10*3 1.0-4.0 Blood monocytes automated count (number/volume) 0.4 10*3 0.0-1.0 Automated eosinophil count 0.0 10*3/uL 0.0-0.3 Automated blood basophil count (count/volume) 0.0 10*3/uL 0.0-0.1 Blood reticulocytes count (number/volume) 4 10*9/L 24-90 Blood reticulocytes/100 erythrocytes 0.20 % 0.50-2.40 Fibrin D-dimer FEU measurement in platelet poor plasma (mass/volume) - 17:27 Fibrin D-dimer FEU measurement in platelet poor plasma (mass/volume) 2.45 ug/mL 0.00-0.49 Lactate dehydrogenase 1 [enzymatic activity/volume] in serum or plasma - 17:27 Lactate dehydrogenase 1 [enzymatic activity/volume] in serum or plasma 732 U/L 125-220 Magnesium - 10/24/17 17:27 Magnesium 1.7 mg/dL 1.8-2.4 PLATELET PHERESIS LR - 10/24/17 18:24 PLATELET PHERESIS LR ISSUED 10/24/171930 NR RED CELLS LEUKO REDUCED AS1 - 10/24/17 18:24 RED CELLS LEUKO REDUCED AS1 READY NRG Blood type T Indirect antibody screen panel - 10/24/17 18:24 ABO+Rh group OP NRG Transfusion band number [id number] NRG Blood group antibody screen NEGATIVE NRG Fibrinogen measurement in platelet poor plasma by coagulation assay (mass/ volume) - 10/24/17 18:24 Fibrinogen measurement in platelet poor plasma by coagulation assay (mass/ volume) 740 mg/dL 221-496 Encounters ACCT No. Visit Date/Time Discharge Status Pt. Type Provider Facility Loc./Unit Complaint [id number] 10/23/2016 00:09:00 10/23/2016 23:59:59 CLS Preadmit ARNULFO LANDRY [facility] ONC [id number] 07/24/2016 16:08:00 10/22/2016 00:01:00 DIS Outpatient ARNULFO LANDRY [facility] ONC [id number] 08/01/2016 08:50:00 08/01/2016 23:59:59 CLS Outpatient ARNULFO LANDRY [facility] CARD BREAST CANCER LT [id number] 07/30/2016 12:00:00 07/30/2016 17:40:00 DIS Outpatient MELISSA GALDAMEZ MD [facility] SDC BREAST CANCER [id number] 07/27/2016 12:09:00 07/27/2016 23:59:59 CLS Outpatient ARNULFO LANDRY [facility] CARD BREAST CANCER LT [id number] 07/27/2016 09:53:00 07/27/2016 10:17:00 DIS Outpatient MELISSA GALDAMEZ MD [facility] PREOP BREAST CANCER [id number] 07/26/2016 08:13:00 07/26/2016 23:59:59 CLS Outpatient ARNULFO LANDRY [facility] RAD BREAST CANCER LT [id number] 07/20/2016 07:53:00 07/20/2016 23:59:59 CLS Outpatient ANNETTE WILLIAMSON MD [facility] RAD LT UPPER MEDIAL BREAST LUMP [id number] 08/09/2014 09:19:00 08/09/2014 23:59:59 CLS Outpatient ANNETTE WILLIAMSON MD [facility] RAD CHECK FLUID LEVEL AND LENGTH OF CERVIX [id number] 06/03/2014 13:24:00 06/03/2014 23:59:59 CLS Outpatient ANNETTE WILLIAMSON MD [facility] RAD SURVEY [id number] 09/13/2013 12:16:00 09/13/2013 23:59:59 CLS Outpatient [id number] 10/24/2017 19:28:00 ACT Inpatient ANNETTE WILLIAMSON MD [facility] 4TH THROMBOCYTOPENIA;ANEMIA;EPISTAXIS; METASTATIC BR [id number] 10/31/2012 07:37:00 Document Registration [id number] 10/27/2012 16:18:00 Document Registration
--- OUTSIDE RECORDS SUMMARY | 2017-10-24 19:35 | XMS REPORT | Encounter Summary ---
Author Author [facility] Organization [facility] Address Unknown Phone Unavailable Care Team Providers Care Buildings And Grounds Supervisor Name Role Phone PCP Unavailable Reason for Visit * Reason Comments Appointment Encounter Details Date Type Department Care Team Description 08/08/2017 Telephone [facility] Ron Padilla MD Appointment Cancer Center - Exam [address] [place] [address] [place] [address] [phone] Social History Tobacco Use Types Packs/Day Years [...]
--- OUTSIDE RECORDS SUMMARY | 2017-10-24 19:35 | XMS REPORT | Encounter Summary ---
Author Author [facility] Organization [facility] Address Unknown Phone Unavailable Care Team Providers Care Water Softener Installer Name Role Phone PCP Unavailable Reason for Visit * Reason Comments Appointment Encounter Details Date Type Department Care Team Description 08/08/2017 Telephone [facility] Ron Padilla MD Appointment Cancer Center - Exam [address] [place] [address] [place] [address] [phone] Social History Tobacco Use Types Packs/Day Years [...] encounter Miscellaneous Notes * Telephone Encounter - Priyanka Beckwith MA - 08/08/2017 9:20 AM CDT ----- Message from Kadi Jimenez RN sent at 08/07/2017 9:18 AM CDT ----- Diagnosis code (ICD10): C50.912 Ordering Doctor/MING: [facility]: CT CAP and bone scan this week derick for her abdominal pain, pt with history of breast cancer. Orders are placed in O2. Thank you I was able to get the pt schedule for CT and Bone Scan tomorrow. Bone Scan at the [facility] and CT at [place]. I spoke with the pt and discussed the time, dates and where the appointments where. The pt was okay with the all the appointments. in this encounter Plan of Treatment Not on fileas of this encounter Visit Diagnoses Not on filein this encounter
--- OUTSIDE RECORDS SUMMARY | 2017-10-24 19:35 | XMS REPORT | Encounter Summary ---
Author Author [facility] Organization [facility] Address Unknown Phone Unavailable Care Team Providers Care Diagnostic Technologist Name Role Phone PCP Unavailable Encounter Details Date Type Department Care Team Description 08/05/2017 Nurse Only [facility] [place] MD Malignant neoplasm of Cancer Center - WW Exam [address] left breast in female, [address] [place] [address] [place] [address] negative, unspecified [phone] site of breast;Clinical trial participant;Malignant neoplasm of female breast, unspecified estrogen receptor status, unspecified laterality, unspecified site of breast Social History Tobacco Use Types Packs/Day Years [...] on fileas of this encounter Results * ANTI-NUCLEAR AB(AYLEEN)-QUANT (08/05/2017 11:06 AM) Component Value Ref Range AYLEEN Titer/Pattern 640 (H)Comment: SPECKLED <80 Specimen Performing Laboratory [facility] [address] [place] [address] * ANTI-NUCLEAR ANTIBODY(AYLEEN) (08/05/2017 11:06 AM) Component Value Ref Range AYLEEN Screen SEE TITER <80 TITER Specimen Performing Laboratory Blood [facility] [address] [place] [address] in this encounter Visit Diagnoses Diagnosis Malignant neoplasm of left breast in female, estrogen receptor negative, unspecified site of breast (HCC) Clinical trial participant Malignant neoplasm of female breast, unspecified estrogen receptor status, unspecified laterality, unspecified site of breast (HCC) in this encounter
--- OUTSIDE RECORDS SUMMARY | 2017-10-24 19:35 | XMS REPORT | Encounter Summary ---
Author Author [facility] Organization [facility] Address Unknown Phone Unavailable Care Team Providers Care Extension Worker Name Role Phone PCP Unavailable Reason for Visit * Reason Comments Appointment Request Encounter Details Date Type Department Care Team Description 07/31/2017 Telephone [facility] Andrade Park MD Appointment Request Cancer Center - Exam [address] [place] [address] [place] [address] [phone] Social History Tobacco Use Types Packs/Day Years [...] encounter Miscellaneous Notes * Telephone Encounter - Reyna Donahue - 07/31/2017 3:38 PM CDT ----- Message from Reyna Donahue sent at 07/31/2017 2:47 PM CDT ----- Regarding: FW: Cancel and schedule new appointment ----- Message ----- From: Vanessa Rivera Sent: 07/31/2017 11:33 AM To: Flaca Smith MA Subject: Cancel and schedule new appointment Diagnosis code (ICD10): 50.919 Ordering Doctor/MING: Dr. Andrade Park/ Tanya Stanton Can it be scheduled with MING: N/A Nurse draw or phlebotomy draw: Phlebotomy Draw Imaging: N/A Follow up appointment: N/A: Treatment Date to start: N/A Cycle: N/A Drug: N/A Has the patient been contacted about this appointment? No Comments for appointment: Veto's treatment appointments on 08/05/17 and 08/08/17 need to be canceled. She needs to be scheduled for labs only on 08/05/17 (we can change that 11:00 am tx appointment to an 11:00 am lab appointment). Please contact myself of Negar Albarado if you have any questions. Per orders Patients Treatments have been canceled and a lab has been scheduled for 08/05/17 @ 11:15am. Patient has been notified, and verbalized understanding of appointment time and location. in this encounter Plan of Treatment Not on fileas of this encounter Visit Diagnoses Not on filein this encounter
--- OUTSIDE RECORDS SUMMARY | 2017-10-24 19:35 | XMS REPORT | Encounter Summary ---
Author Author [facility] Organization [facility] Address Unknown Phone Unavailable Care Team Providers Care Electronic Warfare Linguist Name Role Phone PCP Unavailable Encounter Details Date Type Department Care Team Description 07/31/2017 Orders Only [facility] Andrade Park MD Malignant neoplasm of Cancer Center - [facility] Exam [address] left breast in female, [address] [place] [address] [place] [address] negative, unspecified [phone] site of breast (Primary Dx);Clinical trial participant Social History Tobacco [...] fileas of this encounter Results * ANTI-NUCLEAR ANTIBODY(AYLEEN) (08/05/2017 11:06 AM) Component Value Ref Range AYLEEN Screen SEE TITER <80 TITER Specimen Performing Laboratory Blood [facility] [address] [place] [address] in this encounter Visit Diagnoses Diagnosis Malignant neoplasm of left breast in female, estrogen receptor negative, unspecified site of breast (HCC) - Primary Clinical trial participant in this encounter
--- OUTSIDE RECORDS SUMMARY | 2017-10-24 19:35 | XMS REPORT | Encounter Summary ---
Author Author [facility] Organization [facility] Address Unknown Phone Unavailable Care Team Providers Care Gui Developer Name Role Phone PCP Unavailable Reason for Referral * Radiology Services Status Reason Specialty Diagnoses / Referred By Referred To Procedures Contact Contact No Auth Needed Radiology Diagnoses [place], 2 Nuclear Med Malignant [address] neoplasm of left [address] breast [place] female, estrogen [address] [address] [address] [place], [place] Phone: negative, [address] unspecified site Phone: of breast ([facility]) [phone] P Fax: [employer] [phone] NM BONE SCAN WHOLEBODY * Radiology Services Status Reason Specialty Diagnoses / Referred By Referred To Procedures Contact Contact New Request Radiology Diagnoses [place], Malignant MD neoplasm of left [address] breast in [place] female, estrogen [place] [address] receptor [place], [place] negative, [address] unspecified site Phone: of breast ([facility]) [phone] P Fax: [employer] [phone] CT CHEST W CONTRAST * Radiology Services Status Reason Specialty Diagnoses / Referred By Referred To Procedures Contact Contact No Auth Needed Radiology Diagnoses [place], Icc Ct Malignant [address] neoplasm of left [address] [place], [place] breast in [place] [address] female, estrogen [place] [address] Phone: receptor [place], [place] [phone] negative, [address] unspecified site Phone: of breast ([facility]) [phone] P Fax: [employer] [phone] CT ABD/PELV W CONTRAST Encounter Details Date Type Department Care Team Description 08/07/2017 Orders Only [facility] And[place] MD Malignant neoplasm of Cancer Center - WW Exam [address] left breast in female, [address] [place] [address] [place] [address] negative, unspecified [phone] site of breast (Primary Dx) Social History [...] Progress Notes * Kadi Jimenez, RN - 08/07/2017 9:16 AM CDT Patient reported notice pain on her sternum and the right side of her abdomen, very tender to touch. She has an appointment today at 11:00 to see her PCP, she will ask him to order cbc and cmp then fax the result to our office to review. We are setting her up for CT CAP and bone scan derick. We will see patient after her scan result. Pt agreed with plan of care. She will call our office with questions. in this encounter Plan of Treatment Not [...] M.D. on 08/09/2017 3:41 PM. * CT CHEST W CONTRAST (08/09/2017 10:47 [...] Chris Davenport M.D. on 08/09/2017 11:24 AM. in this encounter Visit Diagnoses Diagnosis Malignant neoplasm of left breast in female, estrogen receptor negative, unspecified site of breast (HCC) - Primary in this encounter
--- OUTSIDE RECORDS SUMMARY | 2017-10-24 19:35 | XMS REPORT | Encounter Summary ---
Author Author [facility] Organization [facility] Address Unknown Phone Unavailable Care Team Providers Care Air Launch Weapons Technician Name Role Phone PCP Unavailable Encounter Details Date Type Department Care Team Description 08/08/2017 Orders Only [facility] Tanya Stanton APRN Malignant neoplasm of Cancer Center - [facility] Exam [address] female breast, [address] [place] [address] [place] [address] receptor status, unspecified laterality, unspecified site of breast (Primary Dx) Social History [...] on fileas of this encounter Visit Diagnoses Diagnosis Malignant neoplasm of female breast, unspecified estrogen receptor status, unspecified laterality, unspecified site of breast (HCC) - Primary in this encounter
--- OUTSIDE RECORDS SUMMARY | 2017-10-24 19:35 | XMS REPORT | Encounter Summary ---
Author Author [facility] Organization [facility] Address Unknown Phone Unavailable Care Team Providers Care Copy Clerk Name Role Phone PCP Unavailable Encounter Details Date Type Department Care Team Description 07/31/2017 Orders Only [facility] [place] MD Malignant neoplasm of Cancer Center - [facility] Exam [address] female breast, [address] [place] [address] [place] [address] [place] [address] receptor status, unspecified laterality, unspecified site of [...]
[2017-10-24 19:39] LABS: BILIRUBIN,URINE NEGATIVE (NEGATIVE); KETONES,URINE NEGATIVE (NEGATIVE); LEUKOCYTE ESTERASE ,URINE 1+ (NEGATIVE); NITRITE,URINE NEGATIVE (NEGATIVE); PH,URINE 6 (5-9); PROTEIN,URINE NEGATIVE (NEGATIVE); SQUAMOUS EPITHELIAL CELL,UR 0-2 /HPF; UROBILINOGEN,URINE NORMAL (NORMAL); WBC,URINE 0-2 /HPF
--- NOTE | 2017-10-24 20:03 | History & Physicial ---
History of Present Illness History of Present Illness Reason for visit/HPI 37-year-old female presents to emergency department after having her blood drawn at [facility] today and she was found to have anemia and thrombocytopenia. She is currently seeking care through the [facility] and the laboratory was sent to her doctor at the [facility] and he informed her to proceed to via [facility] emergency department. She does have metastatic breast cancer to her liver. She has had what she described as a oozing nosebleed over the past 2 days off and on. She voices no current pain. She is currently receiving chemotherapeutic agents. Date of Admission Oct 24, 2017 at 19:28 Date Seen by Provider: Oct 24, 2017 Time Seen by Provider: 19:45 I consulted on this patient on 10/24/17 19:57 Attending Physician Ron Williamson MD Admitting Physician Ron Williamson MD Consult Allergies and Home Medications Allergies Coded Allergies: No Known Drug Allergies (Verified , 03/24/08) Home Medications Hydrocodone/Acetaminophen 1 Each Tablet, 1-2 TAB PO 4-6HR PRN for PAIN, #30 MAY TAKE ONE OR TWO TABLETS BY MOUTH EVERY 4 TO 6 HOURS NEEDED FOR PAIN. LAST PAIN MEDICATION, ONE TABLET, GIVEN AT 4:44 PM 07/30/16. Prescribed by: JAMAL CEE on 07/30/16 [id number] Past Sclxgwr-[id number]-Lmhraa Hx Patient Social History Marrital Status: Number of Children: 3 Alcohol Use: Denies Use Recreational Drug Use: No Smoking Status: Never a Smoker 2nd Hand Smoke Exposure: No Recent Foreign Travel: No Contact w/other who traveled: No Recent Hopitalizations: Yes Recent Infectious Disease Expo: No Immunizations Up To Date Date of Influenza Vaccine: Aug 11, 2012 Surgeries Yes (D&C, PORT) Lumpectomy Respiratory No Cardiovascular No Neurological No Reproductive System : No Hx Reproductive Disorders: No Sexually Transmitted Disease: No HIV/AIDS: No Genitourinary No Gastrointestinal No Musculoskeletal No Endocrine History of Endocrine Disorders: No HEENT History of HEENT Disorders: No Loss of Vision: Bilateral Hearing Impairment: Denies Cancer Yes (METS TO LIVER) Breast Did You Recieve Any Treatments: Yes Type of Treatment: Chemotherapy Psychosocial History of Psychiatric Problem: No Integumentary History of Skin or Integumenta: No Blood Transfusions History of Blood Disorders: No Constitutional: see HPI Physical Exam Vital Signs Vital Sign - Last 12Hours 10/24/17 17:15 Temp 98.4 Pulse 126 Resp 20 B/P (MAP) 94/73 (80) Pulse Ox 97 O2 Delivery Room Air Capillary Refill : Less Than 3 Seconds General Appearance: No Apparent Distress Eyes: Bilateral Eye Normal Inspection HEENT: Normal ENT Inspection, Moist Mucous Membranes Neck: Full Range of Motion, Supple Respiratory: Lungs Clear Cardiovascular: Regular Rate, Rhythm, No Murmur Gastrointestinal: Soft, Other (fullness right upper quadrant of abdomen) Rectal: Deferred Extremity: Non Tender Skin: Normal Color, Pallor Comments NAME: RANDI GASTON MED REC#: [id number] PT STATUS: ADM IN : 1980 PHYSICIAN: KALANI RO MD ADMIT DATE: 10/24/17 Signed Date of Exam: 10/24/17 CHEST 1 VIEW, AP/PA ONLY PATIENT HISTORY: Stage IV breast cancer, low platelet count. TECHNIQUE: Single frontal view of the chest. COMPARISON: CT of the chest from 07/26/2016. FINDINGS: The lung volumes are normal. No focal consolidation is seen. No large pleural effusion or pneumothorax is seen. The cardiomediastinal silhouette is normal in size and contour. No acute osseous abnormality is seen. The tip of the right Port-A-Cath projects over the low SVC. IMPRESSION: No acute pulmonary abnormality seen. Dictated by: Dictated on workstation # [id number] Dict: 10/24/171927 Trans: 10/24/171931 Interpreted by: CLEMENTE SMITH MD Electronically signed by: CLEMENTE SMITH MD 10/24/171931 Assessment/Plan Assessment and Plan 1. Thrombocytopenia -1 unit of platelets in the emergency department-currently being received -Recheck CBC in the a.m. -Consultation with hematology Dr. El 2. Anemia -She will receive 1 unit of packed red blood cells after the platelets 3. Breast cancer with metastasis to the liver -She continues to receive her oncology care through the [facility] 4. Hypokalemia and hyponatremia -Patient is taking oral well. -She will receive IV fluids normal saline with 40 mEq of KCl at 125 mL an hour 5. Elevated transaminase levels -Monitor levels 6. Epistasis most likely secondary to number 1 -Currently stable Problems: Admission Diagnosis 1. Thrombocytopenia 2. Anemia 3. Breast cancer with metastasis to the liver 4. Hypokalemia and hyponatremia 5. Elevated transaminase levels 6. Epistasis most likely secondary to number 1 RON WILLIAMSON MD Oct 24, 2017 20:03
[2017-10-24] MEDS ORDERED: CATHETER FLUSH 10 ML SYR IV PRN (20:15)
[2017-10-24] MEDS ORDERED: ONDANSETRON 4 MG/2 ML (SDV) Z0FRAN IV PRN (20:30)
[2017-10-24 20:46] LABS: ANISOCYTOSIS SLIGHT; BAND NEUTROPHILS 3 %; BASOPHILS % (MANUAL) 0 %; EOSINOPHILS % (MANUAL) 0 %; LYMPHOCYTES % (MANUAL) 34 %; METAMYELOCYTES % 1 %; NEUTROPHILS % (MANUAL) 58 %; POLYCHROMASIA SLIGHT
[2017-10-24] MEDS: NS W/KCL 40 MEQ/L 1,000 ML IV SCH ×2 (20:52→23:21)
[2017-10-25] VITALS (10 sets, daily range): BP systolic 81–105; BP diastolic 49–69
[2017-10-25 06:29] LABS: BASOPHILS # (AUTO) 0.1 10^3/uL (0.0-0.1); BASOPHILS % (AUTO) 1 % (0-10); EOSINOPHILS % (AUTO) 0 % (0-10); LYMPHOCYTES # (AUTO) 2.4 X 10^3 (1.0-4.0); LYMPHOCYTES % (AUTO) 50 % (12-44); MEAN CORPUSCULAR HEMOGLOBIN 34 PG (25-34); MEAN CORPUSCULAR HGB CONC 35 G/DL (32-36); MEAN CORPUSCULAR VOLUME 97 FL (80-99); MEAN PLATELET VOLUME 9.8 FL (7.4-10.4); MONOCYTES # (AUTO) 0.4 X 10^3 (0.0-1.0); MONOCYTES % (AUTO) 9 % (0-12); NEUTROPHILS % (AUTO) 40 % (42-75); RED BLOOD COUNT 2.27 10^6/uL (4.35-5.85); RED CELL DISTRIBUTION WIDTH 20.2 % (10.0-14.5); WHITE BLOOD COUNT 4.9 10^3/uL (4.3-11.0)
[2017-10-25 06:37] LABS: INR 1.3 (0.8-1.4); PROTHROMBIN TIME PATIENT 16.3 SEC (12.2-14.7)
[2017-10-25 06:38] LABS: PLATELET COUNT 24 10^3/uL (130-400)
[2017-10-25 06:48] LABS: ALANINE AMINOTRANSFERASE 208 U/L (0-55); ALBUMIN 2.5 GM/DL (3.2-4.5); ANION GAP 17 MMOL/L (5-14); ASPARTATE AMINO TRANSFERASE 435 U/L (5-34); BILIRUBIN,TOTAL 1.8 MG/DL (0.1-1.0); BLOOD UREA NITROGEN 10 MG/DL (7-18); BUN/CREATININE RATIO 20; CALCIUM 7.9 MG/DL (8.5-10.1); CARBON DIOXIDE 22 MMOL/L (21-32); CHLORIDE 97 MMOL/L (98-107); GFR ESTIMATED > 60; GLUCOSE 90 MG/DL (70-105); LACTATE DEHYDROGENASE 639 U/L (125-220); MAGNESIUM 1.7 MG/DL (1.8-2.4); POTASSIUM 3.3 MMOL/L (3.6-5.0); SODIUM 136 MMOL/L (135-145); TOTAL PROTEIN 4.9 GM/DL (6.4-8.2)
[2017-10-25] MEDS ORDERED: DEXA4TAB PO (07:47)
[2017-10-25] MEDS ORDERED: OXYC-529 PO (07:47)
--- NOTE | 2017-10-25 07:56 | Progress Note (SOAP) ---
Subjective Date Seen by Provider: Oct 25, 2017 Time Seen by Provider: 07:00 Subjective/Events-last exam Slept well overnight. No current complaints. Objective Exam Vital Signs Date Time Temp Pulse Resp B/P (MAP) Pulse Ox O2 Delivery O2 Flow Rate FiO2 10/25/17 04:00 98.2 115 18 104/55 (71) 98 Room Air 10/25/17 01:00 115 10/25/17 01:00 98.2 120 19 99/57 (71) 97 Room Air 10/25/17 00:24 98.0 115 18 104/56 99 Room Air 10/25/17 00:00 97.7 113 18 98/54 (69) 98 Room Air 10/24/17 23:00 98.2 114 18 105/53 (70) 98 Room Air 10/24/17 22:22 97.8 115 18 105/64 98 Room Air 10/24/17 22:08 98.1 116 16 95/63 (74) 99 Room Air 10/24/17 22:04 97.9 116 18 95/63 99 Room Air 10/24/17 21:47 98.0 119 18 93/62 100 Room Air 10/24/17 21:08 98.2 113 18 100/57 (71) 100 Room Air 10/24/17 20:10 Room Air 10/24/17 20:08 98.1 113 18 107/57 (74) 98 Room Air 10/24/17 20:00 98.4 114 18 100 Room Air 10/24/17 20:00 98.2 113 20 103/53 100 Room Air 10/24/17 19:55 98.4 114 18 104/56 100 Room Air 10/24/17 19:50 98.4 14 18 98/57 100 Room Air 10/24/17 19:45 98.6 115 18 97/66 100 Room Air 10/24/17 17:15 98.4 126 20 94/73 (80) 97 Room Air I & O 10/25/17 07:00 Intake Total 804 ml Balance 804 ml Capillary Refill : Less Than 3 Seconds General Appearance: No Apparent Distress HEENT: Moist Mucous Membranes Respiratory: Lungs Clear Cardiovascular: Regular Rate, Rhythm Results Lab Laboratory Tests 10/24/17 17:27: White Blood Count 4.2L, Red Blood Count 2.15L, Hemoglobin 7.4L, Hematocrit 22L, Mean Corpuscular Volume 102H, Mean Corpuscular Hemoglobin 34, Mean Corpuscular Hemoglobin Concent 34, Red Cell Distribution Width 18.7H, Platelet Count 5*L, Mean Platelet Volume , Neutrophils (%) (Auto) 65, Lymphocytes (%) (Auto) 26, Monocytes (%) (Auto) 9, Eosinophils (%) (Auto) 0, Basophils (%) (Auto) 1, Neutrophils # (Auto) 2.8, Lymphocytes # (Auto) 1.1, Monocytes # (Auto) 0.4, Eosinophils # (Auto) 0.0, Basophils # (Auto) 0.0, Neutrophils % (Manual) 58, Lymphocytes % (Manual) 34, Monocytes % (Manual) 4, Eosinophils % (Manual) 0, Basophils % (Manual) 0, Metamyelocytes % 1, Band Neutrophils 3, Nucleated Red Blood Cells 1, Polychromasia SLIGHT, Anisocytosis SLIGHT, Macrocytosis MODERATE , Absolute Reticulocyte Count 4L, Percent Reticulocyte Count 0.20L, Prothrombin Time 16.2H, INR Comment 1.3, Activated Partial Thromboplast Time 43H, D-Dimer 2.45H, Sodium Level 129L, Potassium Level 2.6L, Chloride Level 87L, Carbon Dioxide Level 22, Anion Gap 20H, Blood Urea Nitrogen 11, Creatinine 0.62, Estimat Glomerular Filtration Rate > 60, BUN/Creatinine Ratio 18, Glucose Level 239H, Calcium Level 8.0L, Magnesium Level 1.7L, Total Bilirubin 1.9H, Aspartate Amino Transf (AST/SGOT) 527H, Alanine Aminotransferase (ALT/SGPT) 233H, Alkaline Phosphatase 295H, Lactate Dehydrogenase 732H, Total Protein 5.7L, Albumin 2.8L 10/24/17 18:24: Fibrinogen 740H 10/24/17 19:08: Urine Color YELLOW, Urine Clarity CLEAR, Urine pH 6, Urine Specific [place] 1.010L, Urine Protein NEGATIVE, Urine Glucose (UA) NEGATIVE, Urine Ketones NEGATIVE, Urine Nitrite NEGATIVE, Urine Bilirubin NEGATIVE, Urine Urobilinogen NORMAL, Urine Leukocyte Esterase 1+H, Urine RBC (Auto) 1+H, Urine RBC NONE, Urine WBC 0-2, Urine Squamous Epithelial Cells 0-2, Urine Crystals NONE, Urine Bacteria NONE, Urine Casts NONE, Urine Mucus NEGATIVE, Urine Culture Indicated NO 10/25/17 06:15: White Blood Count 4.9, Red Blood Count 2.27L, Hemoglobin 7.6L, Hematocrit 22L, Mean Corpuscular Volume 97, Mean Corpuscular Hemoglobin 34, Mean Corpuscular Hemoglobin Concent 35, Red Cell Distribution Width 20.2H, Platelet Count 24*L, Mean Platelet Volume 9.8, Neutrophils (%) (Auto) 40L, Lymphocytes (%) (Auto) 50H , Monocytes (%) (Auto) 9, Eosinophils (%) (Auto) 0, Basophils (%) (Auto) 1, Neutrophils # (Auto) 2.0, Lymphocytes # (Auto) 2.4, Monocytes # (Auto) 0.4, Eosinophils # (Auto) 0.0, Basophils # (Auto) 0.1, Prothrombin Time 16.3H, INR Comment 1.3, Activated Partial Thromboplast Time 41H, D-Dimer 1.77H, Sodium Level 136, Potassium Level 3.3L, Chloride Level 97L, Carbon Dioxide Level 22, Anion Gap 17H, Blood Urea Nitrogen 10, Creatinine 0.50L, Estimat Glomerular Filtration Rate > 60, BUN/Creatinine Ratio 20, Glucose Level 90, Calcium Level 7.9L, Magnesium Level 1.7L, Total Bilirubin 1.8H, Aspartate Amino Transf (AST/ SGOT) 435H, Alanine Aminotransferase (ALT/SGPT) 208H, Alkaline Phosphatase 271H , Lactate Dehydrogenase 639H, Total Protein 4.9L, Albumin 2.5L, Fibrinogen 442 Assessment/Plan Assessment/Plan Assess & Plan/Chief Complaint 1. Thrombocytopenia -1 unit of platelets in the emergency department-currently being received -Recheck CBC in the a.m. -Consultation with hematology Dr. El 10/25 -platlets up to 24K this am 2. Anemia -She will receive 1 unit of packed red blood cells after the platelets 10/25 -Hg 7.6 3. Breast cancer with metastasis to the liver -She continues to receive her oncology care through the [facility] 4. Hypokalemia and hyponatremia -Patient is taking oral well. -She will receive IV fluids normal saline with 40 mEq of KCl at 125 mL an hour 5. Elevated transaminase levels -Monitor levels 10/25 -Levels slightly lower 6. Epistasis most likely secondary to number 1 -Currently stable Clinical Quality Measures DVT/VTE Risk/Contraindication: Risk Factor Score Per Nursin RFS Level Per Nursing on Admit: 3=High ANNETTE WILLIAMSON MD Oct 25, 2017 07:56
[2017-10-25] MEDS ORDERED: PROC10TA PO (09:07)
[2017-10-25] MEDS ORDERED: [UNRECOGNIZED DRUG - CODE] IV (09:12)
[2017-10-25] MEDS ORDERED: OMEP20TA33 PO (09:12)
[2017-10-25] MEDS ORDERED: [UNRECOGNIZED DRUG - CODE] IV (09:12)
[2017-10-25] MEDS: NS W/KCL 40 MEQ/L 1,000 ML IV SCH (09:56)
[2017-10-25] MEDS ORDERED: NS IV 500 ML 500 ML ONE (12:24)
--- NOTE | 2017-10-25 13:04 | CONSULTATION REPORT ---
DATE OF SERVICE: 10/25/2017 REFERRING AND PRIMARY PHYSICIAN: Ron Padilla MD. The patient is admitted to room 421. IMPRESSION: 1. A 37-year-old female diagnosed with a triple negative breast cancer in 07/2016 and underwent neoadjuvant chemotherapy followed by lumpectomy and sentinel lymph node biopsy followed by additional chemotherapy and breast radiation, completing all treatments by 05/2017. 2. Diagnosed with extensive liver metastasis in 07/2017. Currently, on palliative chemotherapy with gemcitabine and vinorelbine regimen on a day 1 and day 8 every 21-day cycle through [facility]. 3. Admitted with nosebleeds of a 2-day duration and found to have a platelet count of 3000 and hemoglobin level of 7.4. 4. Status post transfusion with one unit of platelet and packed red blood cells last night. 5. This morning, the patient still complaining of dizziness when getting up from the bed and the nosebleeds have slowed down significantly. RECOMMENDATIONS: 1. Transfuse one more unit of packed red blood cells because of postural dizziness. 2. As long as there is no further bleeding, her platelet count is stable and continue to monitor serially. 3. Okay to discharge home after completion of the packed red blood cells transfusion if stable from medical standpoint. 4. The patient is scheduled for restaging CT scans next week and has a followup at [facility] to review the results. She was instructed to keep this appointment. BRIEF HISTORY: The patient is a 37-year-old female who was diagnosed with stage IIA triple negative breast cancer in 07/2016. She was enrolled in a clinical trial through [facility] and treated with carboplatin and Taxotere regimen for 4 cycles followed by lumpectomy and sentinel lymph node biopsy. She completed further chemotherapy with Adriamycin and Cytoxan regimen for 4 more cycles followed by radiation therapy to the breast. All this was completed in 05/2017. By 07/2017, she was diagnosed with an extensive liver metastasis. At this point, she went to [facility] for an opinion and had a liver biopsy, which confirmed recurrent breast cancer and was started on palliative chemotherapy with gemcitabine and vinorelbine regimen on a day 1 and day 8 every 21-day cycle. She has just completed the fourth cycle and is on the rest week this week. She has had a grade III-IV cytopenias, requiring dose reduction previously. She developed nosebleeds since the last 48 hours and as it was worsening, had a lab work done on outpatient basis, which showed significant thrombocytopenia and anemia. She was instructed to come to the emergency room at [facility] and was admitted for further management. The medical oncology consultation was requested for concurrent management. PAST MEDICAL HISTORY: Essentially unremarkable with no major medical problems. SOCIAL HISTORY: The patient is and lives in [place], [place]. She has 3 children ranging in age from 8 to 2 years. She was working at [employer] for several years at the time of diagnosis. She has not been working recently. She denied any tobacco, alcohol or other recreational drug use. FAMILY HISTORY: Significant for her mother who was diagnosed with rectal cancer while in her mid 40s. Maternal grandfather was diagnosed with prostate cancer while in his upper 60s. A paternal uncle was diagnosed with an unknown malignancy while in the 60s. No other malignancies in the family that the patient knows of. PHYSICAL EXAMINATION: GENERAL: Today, showed a young female, thin appearing, awake and oriented and otherwise in no acute distress. VITAL SIGNS: Temperature was 98.7, pulse rate of 120, respirations 18 and blood pressure 100/69. Oxygen saturation was 100% on room air. HEENT: Normocephalic with thinning hair, extraocular muscles intact, conjunctivae slightly pale, oral mucosa moist. NECK: Supple, with no JVD. No cervical, supraclavicular or axillary lymphadenopathy palpable. CHEST: Examination of the chest showed a right-sided port. LUNGS: Fairly clear to auscultation without wheezes or rales. CARDIOVASCULAR: Tachycardic, regular with no murmurs or gallops heard. ABDOMEN: Soft with mild tenderness in the right upper quadrant area with liver edge palpable below the costal margin. No other masses palpable. EXTREMITIES: Showed no edema. NEUROLOGIC: Showed no focal motor deficits. LABORATORY DATA: Reviewed her lab work. CBC done yesterday at the emergency room showed white count of 4.2, hemoglobin 7.4, platelet count of 5000 with neutrophil count of 2.8 and lymphocyte count of 1.1. Absolute reticulocyte count was 4000. Chemistry panel done at the time of admission showed sodium level of 129 and potassium 2.6. BUN was 11 and creatinine 0.62 with GFR more than 60 mL per minute. Nonfasting glucose was 239. Total bilirubin was elevated at 1.9, AST 527, ALT 233 and alkaline phosphatase 295. Albumin was below normal at 2.8. Serum LDH was elevated at 732. Repeat done today morning showed sodium back at 136, potassium 3.3. Magnesium level of 1.7. Total bilirubin was 1.8, AST 435, ALT 208, alkaline phosphatase 271 and albumin level of 2.5. Serum LDH was 639. UA was unremarkable. Protime was elevated at 16.3 with INR of 1.3, PTT was 41. D-dimer was elevated at 2.45 at the time of admission and 1.77 today morning. Quantitative fibrinogen was 740 at the time of admission and 442 today morning. Chest x-ray was unremarkable. Thank you for allowing me to participate in this patient's care. Job ID: [id number] DocumentID: [id number] Dictated Date: 10/25/2017 11:07:15 Inside Sales Associate Date: 10/25/2017 13:02:59 Dictated By: ARNULFO LANDRY MD
[2017-10-25 16:40] LABS: BASOPHILS # (AUTO) 0.2 10^3/uL (0.0-0.1); BASOPHILS % (AUTO) 3 % (0-10); EOSINOPHILS % (AUTO) 0 % (0-10); LYMPHOCYTES # (AUTO) 2.6 X 10^3 (1.0-4.0); LYMPHOCYTES % (AUTO) 50 % (12-44); MEAN CORPUSCULAR HEMOGLOBIN 33 PG (25-34); MEAN CORPUSCULAR HGB CONC 35 G/DL (32-36); MEAN CORPUSCULAR VOLUME 95 FL (80-99); MEAN PLATELET VOLUME 10.3 FL (7.4-10.4); MONOCYTES # (AUTO) 0.7 X 10^3 (0.0-1.0); MONOCYTES % (AUTO) 13 % (0-12); NEUTROPHILS # (AUTO) 1.9 X 10^3 (1.8-7.8); NEUTROPHILS % (AUTO) 35 % (42-75); RED BLOOD COUNT 2.95 10^6/uL (4.35-5.85); RED CELL DISTRIBUTION WIDTH 19.4 % (10.0-14.5); WHITE BLOOD COUNT 5.3 10^3/uL (4.3-11.0)
[2017-10-25 16:42] LABS: PLATELET COUNT 21 10^3/uL (130-400)
== END 2017-10-25 18:05 | disposition home or self-care (01) | DRG 812 ==
LOC: EDUNIT# 16:59 → ER 17:01 → 4TH 19:28
PROVIDERS: ADMIT Family Medicine; ATTEND Family Medicine
DX: D64.81 Anemia due to antineoplastic chemotherapy (principal); C50.912 Malignant neoplasm of unspecified site of left female breast; C78.7 Secondary malignant neoplasm of liver and intrahepatic bile duct; D69.6 Thrombocytopenia, unspecified; E87.6 Hypokalemia; E87.1 Hypo-osmolality and hyponatremia; R74.0 Nonspecific elevation of levels of transaminase and lactic acid dehydrogenase [LDH]; R04.0 Epistaxis; Z92.21 Personal history of antineoplastic chemotherapy; Z92.3 Personal history of irradiation; Z80.8 Family history of malignant neoplasm of other organs or systems; Z80.42 Family history of malignant neoplasm of prostate
CPT/HCPCS: 36415; 71010; 80053; 81000; 83010; 83615; 83735; 85007; 85025; 85027; 85045; 85379; 85384; 85610; 85730; 86850; 86900; 86901; 86920; 96360; 99284